=== PATIENT | female | born 1945 | race Caucasian/White ===

== ENCOUNTER 2020-09-20 10:27 | Emergency (ER) | payer OTHER ==
[~2020-09-20] VITALS: Ht 162.6 cm; Wt 77.1 kg
[~2020-09-20 10:27] MED LIST: ADVAIR 100-501 EACH INH; LISINOPRIL5 MG PO; LORTAB 7.5/5001 TA3 PO
[2020-09-20 11:49] LABS: URINE BILIRUBIN NEGATIVE (Negative); URINE BLOOD 1+ (Negative); URINE COLOR YELLOW; URINE GLUCOSE-RANDOM* NEGATIVE (Negative); URINE KETONES TRACE (Negative); URINE NITRITE-REFLEX NEGATIVE (Negative); URINE PROTEIN (DIPSTICK) 1+ (Negative); URINE UROBILINOGEN 0.2 E.U./dl (0.2-1.0)
[2020-09-20 11:50] LABS: URINE CLARITY SL HAZY; URINE LEUKOCYTES-REFLEX 1+ (Negative)
[2020-09-20 11:53] LABS: HEMATOCRIT 41.3 % (37.0-47.0); HEMOGLOBIN 13.5 gm/dL (12.0-15.0); MCH 29.2 pg (26.0-34.0); MCHC 32.8 g/dL (28.0-37.0); MCV 89.1 fL (80.0-100.0); RBC 4.63 mil/uL (4.20-5.00); RDW 13.2 % (10.5-14.5); WBC 4.3 thou/uL (4.0-11.0)
[2020-09-20 11:54] LABS: ANION GAP 15 mmol/L (7-16); BUN 26 mg/dL (7-18); CHLORIDE 104 mmol/L (98-107); CO2 20 mmol/L (21-32); CREATININE 1.4 mg/dL (0.6-1.0); GLUCOSE 137 mg/dL (74-106); POTASSIUM 3.7 mmol/L (3.5-5.1); SODIUM 139 mmol/L (136-145)
[2020-09-20 12:00] LABS: CASTS None Seen /LPF (None Seen); MUCUS 4-6 Moderate strn/LPF (None Seen); SQUAMOUS 0-3 Few /LPF (0-3); URINE WBC-REFLEX 6-15 Few /HPF (0-5)
[2020-09-20 12:01] LABS: BACTERIA-REFLEX >30 Many /HPF (None Seen); CRYSTALS None Seen /LPF (None Seen); URINE RBC 0-2 Rare /HPF (0-2)
[2020-09-20 12:03] LABS: SALICYLATE < 2.8 mg/dL (2.8-20.0); TROPONIN-I <0.06 ng/mL (<0.06)
[2020-09-20 18:00] VITALS: BP 112/84
--- NOTE | 2020-09-22 07:39 | EKG ---
[address] [place] [address] [facility] [place] [address] ELECTROCARDIOGRAM REPORT Name: RENATA SILVEIRA Room #: [facility]#: [id number] Admission: 09/20/20 Attend Phys: Discharge: 09/20/20 Date of : 47 Report #: [id number] [facility] ED Test Date: 2020-09-20 Test Time: 11:05:35 Pat Name: RENATA SILVEIRA Department: Room: Gender: F Bellows Tester: rick : 1945 Requested By: Frederick Yu Order Number: [id number] MD: Cody Wilkinson Measurements Intervals [place] Rate: 90 P: 65 DC: 179 QRS: -45 QRSD: 92 T: -10 QT: 383 QTc: 469 Interpretive Statements Sinus rhythm Abnormal R-wave progression, early transition Nonspecific ST and T wave abnormality Inferior infarct, old No previous ECG available for comparison Electronically Signed On 09-22-2020 7:39:07 GUEST RELATIONS REPRESENTATIVE by Cody Wilkinson [email or web address] <ELECTRONICALLY SIGNED> By: Cody Wilkinson MD, [facility] 09/22/20 0739 1105 1105 Cody Wilkinson MD, FACC /EPI
== END 2020-09-20 18:08 ==
LOC: ER 10:27
PROVIDERS: Emergency Medicine
DX: U07.1 COVID-19 (principal); F03.90 Unspecified dementia, unspecified severity, without behavioral disturbance, psychotic disturbance, mood disturbance, and anxiety; F31.9 Bipolar disorder, unspecified; N39.0 Urinary tract infection, site not specified; G93.40 Encephalopathy, unspecified; I10 Essential (primary) hypertension; E78.5 Hyperlipidemia, unspecified; R25.1 Tremor, unspecified; F41.9 Anxiety disorder, unspecified; Z90.49 Acquired absence of other specified parts of digestive tract; Z98.51 Tubal ligation status; Z79.899 Other long term (current) drug therapy; Z91.041 Radiographic dye allergy status; Z88.5 Allergy status to narcotic agent; Z93.6 Other artificial openings of urinary tract status; Z85.51 Personal history of malignant neoplasm of bladder

== ENCOUNTER 2020-09-20 18:35 | Inpatient (IN) | payer OTHER ==
[~2020-09-20] VITALS: Ht 162.6 cm; Wt 69.5 kg
--- NOTE | ~2020-09-20 | HC ---
[facility] [place] [address] CONSULTATION Name: RENATA SILVEIRA Room #: 355-P ADM IN M.R.#: [id number] Admission: 09/20/20 Attend Phys: Heber Sterling DO Discharge: Date of : 47 Report #: [id number] THIS REPORT FOR: cc: FAM - No family physician/PCP FAM - No family physician/PCP Nahum Orona MD ~ DATE OF SERVICE: 10/09/2020 HISTORY OF PRESENT ILLNESS: This is a 75-year-old female patient for which a neurological consultation is requested because of altered mental status. I reviewed the patient's records. I reviewed the nurse's note. I called Dr. Guzman and I talked to her and I called Dr. Edgardo Amezcua who is the hospitalist, who saw the patient today and discussed the patient with him. This patient provides no history. I made repeated effort to get any words out of her and I cannot get any words out of her and I cannot make her do any examination. So basically the consultation is from the records, but we will try to reach the family sometime. This patient has pretty significant psychiatric issues. She also developed COVID. It looks like this patient has some confusion even as early as 09/21/2020 and I reviewed the Psychiatry notes from that time. The notes indicate that she did have a urinary tract infection, but even now she has 6-15 wbc's in the urine. The history I get from the record as well as talking to the consultant rn is that this patient is not waking up, some examination has noticed some eye problems on her. Her medications are being cut back, but she is not much awake in fact the notes indicate that she is less awake today than she was yesterday. REVIEW OF SYSTEMS: Positive for pretty significant psychiatric problem. She also has tremor in the past. As far as back as 09/21/2020, I reviewed and looks like there was some conflict that she is reporting with the family member, but I am not sure whether that was a paranoid or whether that really happened. That is all the history I can gather, which is relevant. PAST MEDICAL HISTORY: Unavailable to me, except as mentioned above that she has a pretty significant psychiatric problem. FAMILY HISTORY: Unavailable. SOCIAL HISTORY: Again, she does not provide any social history and the records indicate that she does have a daughter and H and P indicates that she has no alcohol use. PHYSICAL EXAMINATION: Indicate that multiple attempts were made to examine her. She will not even open her eyes. She will not follow any commands. She does state her eyes closed and when I tried to open it, she tried to shut it down. Examination was impossible. I cannot tell anything. I did try to look for [facility] [address] [place] [address] CONSULTATION Name: RENATA SILVEIRA Room #: 355-P ADM IN M.R.#: [id number] Admission: 09/20/20 Attend Phys: Heber Sterling DO Discharge: Date of : 47 Report #: [id number] meningeal sign and she does not appear to have any. She has been mostly afebrile at least from 10/05/2020. Her pulse rate is running high at about 103, respirations about 16. She had an MRI of the brain with and without contrast and that was unremarkable. IMPRESSION: Pretty difficult to form in this patient. She is not responsive. I think she needs further workup. It may be COVID related encephalopathy, but other etiologies need to be excluded. Her LDH is trace high and platelet is stay low, but she has no schistocyte in the last CBC. She appears to have vitamin B12, has not been checked recently and I will suggest checking it. At one time, she has had some kidney issues, but they have resolved, but I will suggest giving her some thiamine. We can wait until tomorrow and if she does not wake up with lowering the medication, I agree that the next step is doing the spinal tap and if we do the spinal tap, we should do a cell count, protein, glucose, IgG index and oligoclonal band in this patient. I also agree with EEG to see if that look encephalopathy. I am not sure whether I should talk to the family or not because of the statement she has made, which has been recorded in H and P and I did not discuss that with Dr. Guzman today and I forgot, but we will talk to her tomorrow to see if that was her paranoia or whether that is a reality and whether we should even talk to the family. Thank you very much for this referral and Dr. Post will follow up this patient with you from tomorrow. By: 27 51 Nahum Orona MD /nt
[2020-09-20 18:45] VITALS: BP 116/77
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
[2020-09-21 07:50] VITALS: BP 100/56
--- NOTE | 2020-09-21 08:45 | NUR ---
ADMIT PT ADMITTED VIA ED FOR PSYCHOSIS NON SPECIFIC PT LIVES AT HOME WITH DAUGHTER AND PER DTR HAS HX OF BIPOLAR DISEASE. PT HAS HX OF BLADDER CANCER RESULTING IN AN UROSTOMY WITH RADIATION AND CHEMO. SELF CARES FOR UROSTOMY, BAG WAS FULL AT START OF SHIFT AND SHE EMPTIED IT HERSELF. ANSWERED ADMISSION QUESTIONS AND THEN SLEPT FOR THE REMAINDER OF THE SHIFT WAS COPPERATIVE WITH CARES.
[2020-09-21 12:15] VITALS: BP 102/62
--- NOTE | 2020-09-21 14:31 | NUR ---
1430 RESUMMED CARE FROM OVERNIGHT SHIFT THIS AM, PATIENT IN ROOM QUIET CALM. PATIENT ATE BREAKFAST TOOK MEDICATION WITHOUT INCIDENCE; PATIENT ALERT ORIENTED TO SELF AND MONTH COULD NOT TELL YOU ABOUT DATE AND PLACE. PATIENTS DENIES SI/HI/AH/VH AT [facility]. PATIENTS ABDOMEN SOFT ROUND BOWEL SOUNDS PRESENT LUNGS CLEAR. PATIENT PLEASANT CALM NO BEHAVIORS SOME FORGETFULNESS PATIENT HAS TREMORS IN BOTH HANDS THE RIGHT HAND IS WORST THEN LEFT. WILL CONTINUE TO MONITOR PATIENT FOR SAFETY AND BEHAVIORS.
[2020-09-21 16:30] VITALS: BP 94/57
[2020-09-21 19:53] VITALS: BP 89/48
[2020-09-22 04:03] VITALS: BP 121/96
--- NOTE | 2020-09-22 04:45 | NUR ---
PT LYING IN BED. UROSTOMY INTACT. DENIES PAIN. RESTING COMFORTABLY. NO NEEDS VOICED. FREQUENT OBSERVATION.
[2020-09-22 07:25] VITALS: BP 93/43
[2020-09-22 16:45] VITALS: BP 95/64
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
[2020-09-22 19:56] VITALS: BP 110/67
--- NOTE | 2020-09-22 22:00 | NUR ---
PATIENT SITTING SADLY AT EDGE OF BED, ASKED IF SHE NEEDED HELP GETTING TO THE BATHROOM, SHE REPLIED "IT'S TOO LATE" UROSTOMY BAG WAS NEARLY FULL AND, MORE TO THE POINT, LEAKING AT THE SIDE. PATIENT VERY UPSET ABOUT THIS AND WAS REASSURED THAT A REPLACMENT COULD BE FOUND.
--- NOTE | 2020-09-23 00:30 | NUR ---
UROSTOMY BAG REPLACED WITH HILARY 8640 WITH OVAL CUTOUT TO 1". DRAINING WELL AND AGREEMENT WAS MADE TO CHECK IT OFTEN. NEW MEDS STARTED AND EXPLAINED TO PATIENT: LAMICTAL AND MIRTAZIPINE, SHE WAS FAMILIAR WITH AT LEAST ONE OF THEM. MELATONIN GIVEN, PATIENT UNDERSTANDS THAT WE TYPICALLY LIKE TO GIVE SLEEPING PILLS BEFORE 10 PM, BUT MELATONIN IS NOT A BENZODIAZEPINE, AND SHE REALLY WANTS TO REST. CALMER NOW AND TURNING TO LEFT SIDE TO TRY SLEEPING
[2020-09-23 04:35] VITALS: BP 99/55
[2020-09-23 11:47] LABS: CALCIUM 9.3 mg/dL (8.5-10.1); POTASSIUM 4.2 mmol/L (3.5-5.1)
[2020-09-23 19:45] VITALS: BP 91/59
[2020-09-24 03:51] VITALS: BP 100/57
--- NOTE | 2020-09-24 03:52 | NUR ---
ASSESSMENT DOCUMENTED.PT BEEN SLEEPING MOST OF THE NOC.ON RA.A/OX2-3 W/O ACUTE DISTRESS.VSS.AFEBRILE.NO BEHAVIOR NOTED.ISOLATION MAINTAINED.NO C/O PAIN OR ANY DISTRESS NOTED AT THIS TIME.
[2020-09-24 05:39] LABS: HEMOGLOBIN 12.7 gm/dL (12.0-15.0); MCHC 32.6 g/dL (28.0-37.0); MCV 88.9 fL (80.0-100.0); RBC 4.39 mil/uL (4.20-5.00); RDW 13.1 % (10.5-14.5); WBC 5.1 thou/uL (4.0-11.0)
[2020-09-24 05:48] LABS: POTASSIUM 4.7 mmol/L (3.5-5.1)
[2020-09-24 08:10] VITALS: BP 107/54
--- NOTE | 2020-09-24 11:03 | NUR ---
PT CARE ASSUMED AT 0700. PT REFUSING TO GET UP AND ANNE IN HER BURST UROSTOMY BAG. HAS BEEN SLEEPING ALL NIGHT AND ALL MORNING. REFUSES TO LET ME ASSESS HER. SHE DID TAKE HER MORNING MEDICATION. IV PATENT WITH NO REDNESS OR EDEMA, FLUIDS INFUSING. BUN 55, CREATININE 2.0. PT HAS TREMORS IN THE HANDS AND SHAKES ON THE ENTIRE BODY AT TIMES TOO. WILL NOT KEEP EYECONTACT WHEN WHEN TOO. FALL PROTOCOL IN PLACE. CALL [facility] IN REACH. WILL CONTINUE TO MONITOR.
[2020-09-24 16:22] LABS: URINE BILIRUBIN NEGATIVE (Negative); URINE BLOOD 1+ (Negative); URINE CLARITY CLEAR; URINE COLOR YELLOW; URINE GLUCOSE-RANDOM* NEGATIVE (Negative); URINE KETONES NEGATIVE (Negative); URINE LEUKOCYTES-REFLEX NEGATIVE (Negative); URINE NITRITE-REFLEX NEGATIVE (Negative); URINE PROTEIN (DIPSTICK) NEGATIVE (Negative); URINE UROBILINOGEN 0.2 E.U./dl (0.2-1.0)
[2020-09-24 16:31] LABS: CASTS None Seen /LPF (None Seen); CRYSTALS None Seen /LPF (None Seen); SQUAMOUS 0-3 Few /LPF (0-3); URINE WBC-REFLEX 6-15 Few /HPF (0-5); YEAST-REFLEX Present (None Seen)
[2020-09-24 16:32] LABS: BACTERIA-REFLEX 1-9 Few /HPF (None Seen); URINE RBC 0-2 Rare /HPF (0-2)
[2020-09-24 17:40] VITALS: BP 125/60
[2020-09-24 19:48] VITALS: BP 102/61
--- NOTE | 2020-09-25 03:10 | NUR ---
PT ORIENTED TO SELF. NO ZBIGNIEW EVENTS VERNIGHT. PT SLEPT MOST OF THE NIGHT. DENIES PAIN. PT EARLIER AT THE SHIFT CHANGE KEPT MOANING STATING ," I WANT MY MOTHER, I WON'T RUN AWAY AGAIN.". PT REDIRECTED TO SLEEP , VITALS STABLE NO FEVER NOTED. UROSTOMY EMPTIED PERIODOCALLY . IV MAINTANANCE FLUIDS AT 100/HR. WILL CONTINUE TO MONITOR AND FOLLOW POC. ANTICIPATE TO DC TODAY.
[2020-09-25 04:24] VITALS: BP 106/59
[2020-09-25 09:33] VITALS: BP 94/51
--- NOTE | 2020-09-25 11:31 | NUR ---
SW reviewed pt's notes and saw that she is still experiencing some psych symptoms. Dr. Guzman explained in treatment team that she sees pt outpatient and pt is her own decision maker. Pt will be returning home. Dr. Guzman has been in contact with her family. SW team will continue to follow pt during her stay on this unit.
--- NOTE | 2020-09-25 14:41 | NUR ---
UNCLOTHED WITH LEGS SWUNG OVER SIDE OF BED ATTEMPTING TO CRAWL BETWEEN SIDE RAILS UPON INITAL APPROACH THIS AM AT 0730-YELLING OUT "Mamma-mammma"does quiet for short periods of time with staff sitting at bedside but will resume yelling almost immediatly upon staff member departure. inititally this am did feels warm totouch-temp checked and is 98.9 axillary-recheck at 1330 pt is afebrile with 97.9 oral temp. initial o2 sat thsi am low at 90 percent on ra-is noted to have dry cough periodically throughout am. dr. arriaga and dr singh notified of above
--- NOTE | 2020-09-25 18:56 | NUR ---
O2 SATS THIS AM LOW UPON INITIAL ASSESSMENT AT APPROX 0745-O2 2 LITERS PER NC APPLIED HOWEVER PT REMOVES FREQUENTLY-O2 RECHECKED AFTER SITTING UP IN CHAIR FOR LUNCH AND DOING SOME DEEP BREATHING WITH INSTRUCTIONS-RECHECKED ON RA AT 1300 AND SAT IS 95 PERCENT-INFREQUENT DRY NON-PRODUCTIVE COUGH THIS SHIFT. EATS WELL AT MEALTIMES BUT REQUIRES FEEDING BY STAFF D/T GROSS UPPER EXTREMITY TREMOR WHICH SEEMS TO GET WORSE WITH PURPOSEFUL ACTIVITY-TAKES PO FLUIDS WELL.UROSTOMY BAG EMPTIED WITH APPROX 700 CC URINE. HAS CONTNUED TO YELL OUT FROM TIME TO TIME FOR MOTHER AND FATHER-WILL ANSWER YES/NO QUESTIONS AND ABLE TO COMMUNICATE NEEDS. RESTLESS AT APPROX 1530 REMOVED CLOTHING AND LYING AT FOOT OF BED IN POSITION CRYING FOR MOTHER .
[2020-09-25 20:14] VITALS: BP 138/81
[2020-09-26 07:58] VITALS: BP 122/73
[2020-09-26 10:40] LABS: CALCIUM 8.1 mg/dL (8.5-10.1); POTASSIUM 3.8 mmol/L (3.5-5.1)
--- NOTE | 2020-09-26 12:02 | NUR ---
1200 RESUMMED CARE FROM OVERNIGHT SHIFT THIS AM, PATIENT IN ROOM QUIET. PATIENT'S BED THIS AM WAS SOAKED WITH URINE WE CHANGED PATIENTS LINEN AND CLEANED PATIENT. PATIENT ATE VERY LITTLE BEAKFAST AND STATED HE FOOD IS NASTY, I CRUSHED HER MEDS AND GAVE IN APPLESAUCE. PATIENT ABDOMEN SOFT ROUND BOWEL SOUNDS PRESENT; LUNGS CLEAR. PATIENT UNABLE TO TELL ME ABOUT SI/HI/AH/VH AT PRESENT. PATIENTS DAUGHTER CALLED AND WANTS DR SHEPHERD TO CALL HER [phone]. PATIENT SLEEPS ON AND OFF AND HAS NOT DISPLAYED AN BEHAVIORS WILL CONTINUE TO MONITOR PATIENT FOR SAFETY AND BEHAVIORS.
[2020-09-26 20:03] VITALS: BP 143/75
--- NOTE | 2020-09-27 05:10 | NUR ---
Assumed care of patient this pm shift. Patient calm and cooperative. Denies pain. Denies hi/si. Takes medications crushed with yogurt. Affect is blunted. Assessment shows no signs of acute distress. Swallowing precautions in place, nectar thick liquids. Patient slept through the night without issue. We will continue to monitor per hospital policy.
--- NOTE | 2020-09-27 05:17 | NUR ---
Assumed care of patient this pm shift. Patient calm and cooperative and speaks very little. Yes no questions. Patient is very lethargic. IV in right forearm infiltrated. A new IV will be attempted by RN. Patient has a urinary ostomy bag in place. Falls precautions in place. Patient does not appear to have hi/si. Assessment shows no signs of acute distress. We will continue to monitor per hospital policy.
[2020-09-27 07:41] VITALS: BP 139/87
[2020-09-27 09:58] VITALS: BP 139/87
--- NOTE | 2020-09-27 16:02 | NUR ---
1600 RESUMMED CARE FROM OVERNIGHT SHIFT THIS AM, PATIENT IN RECLINER SLEEPING. PATIENT ALERT ORIENTED TO SELF NON VERBAL WHEN YOU ASK QUESTIONS NODS NO OR YES. PATIENTS ABDOMEN SOFT ROUND BOWEL SOUNDS PRESENT, LUNGS LOWER CRACKLES PTIENT IS ON [address] HALL CAME AND ROUNDED ON PATIENT SHE ASK ME TO CALL DR GRANADOS AND ASK HIM WHAT WE SHOULD DO FOR THE PATIENT. DR GRANADOS CALLED ME AND PATIENT'S IV STARTED BY IV NURSE AND MEDICATION GIVEN TO PATIENT. DR GRANADOS WILL ROUND ON PATIENT LATER IN DAY. PATIENT CALM COOPRATIVE WILL CONTINUE TO MONITOR PATIENT FOR SAFETY AND BEHAVIORS.
[2020-09-27 20:20] VITALS: BP 148/99
[2020-09-28 04:30] LABS: ABSOLUTE NEUTROPHILS 4.4 thou/uL (1.4-8.2); BASOPHILS 0.3 % (0.0-2.0); EOSINOPHILS 0.7 % (0.0-3.0); HEMOGLOBIN 11.9 gm/dL (12.0-15.0); LYMPHOCYTES 15.5 % (24.0-44.0); MCH 29.3 pg (26.0-34.0); MCHC 33.1 g/dL (28.0-37.0); MCV 88.6 fL (80.0-100.0); MONOCYTES 10.6 % (1.0-8.0); PLATELET COUNT 202 thou/uL (150-400); POLYS 72.9 % (36.0-66.0); RBC 4.06 mil/uL (4.20-5.00); RDW 13.4 % (10.5-14.5)
[2020-09-28 04:33] LABS: ALBUMIN 2.5 g/dL (3.4-5.0); CALCIUM 8.3 mg/dL (8.5-10.1); POTASSIUM 3.2 mmol/L (3.5-5.1); TOTAL BILIRUBIN 1.1 mg/dL (0.2-1.0); TOTAL PROTEIN 6.9 g/dL (6.4-8.2)
--- NOTE | 2020-09-28 04:47 | NUR ---
ASSUMED PT'S CARE BEGINNING OF THIS PM SHIFT. PT ALERT. PT ON 2L NC. APPARENTLY WAS ON 6L PER REPORT BEGINNING OF SHIFT. UNABLE TO ANSWER ANY ORIENTATION QUESTIONS. PT ABLE TO NOD OR SHAKE HEAD IN RESPONSE TO QUESTIONS. PT NON COMPLIANT WITH MEDS THIS SHIFT. VOICED "NO". CLOSED HER MOUTH AND TIGHTENED HER LIPS AND TEETH. SEVERAL ENCOURAGEMENTS FOR PT TO TAKE MEDS WERE NOT PRODUCTIVE. NEW MEDS ORDERED PER DR GRANADOS. MEDS GIVEN PER EMAR. URINE SAMPLE OBTAINED FOR LAB. MRSA SWAB DONE. PT SLEPT WELL THIS SHIFT, SATTING UP TO 94% ON 2L. LUNGS CLEAR THIS SHIFT. FALL PRECAUTION IN PLACE. WILL CONTINUE TO MONITOR.
[2020-09-28 05:37] LABS: INR 1.2; PROTIME 11.9 Seconds (9.3-11.4)
[2020-09-28 08:00] VITALS: BP 159/52
[2020-09-28 10:39] LABS: ALBUMIN 2.7 g/dL (3.4-5.0); CREATININE 0.9 mg/dL (0.6-1.0); DIRECT BILIRUBIN 0.2 mg/dL (<0.1-0.2)
--- NOTE | 2020-09-28 13:02 | NUR ---
0850 ASSUMED CARE OF PATIENT, PATIENT SLEEPING IN CHAIR AT THAT TIME. PATIENT REFUSES TO EAT BREAKFAST AND ONLY TAKES 2/3 OF MEDICATION CRUSHED IN YOGURT THIS AM. PATIENT TIGHTENS UP MOUTH AND REUSES TO TAKE. HEP LOCK TO LEFT HAND INTACT NO REDNESS NOTED. PATIENT UNABLE TO ANSWER QUESTIONS AT THAT TIME. PATIENT NOTED WITH TREAMORS THAT INCREASE WHEN TALKING WITH PATIENT. UROSTOMY BAG INTACT. LUNG SOUNDS DEMINISHED, BS ACTIVE. WILL CONTINUE TO OBSERVE
--- NOTE | 2020-09-28 13:50 | NUR ---
SW completed psychosocial assessment and tx plan.
--- NOTE | 2020-09-28 14:37 | NUR ---
1410 DR BORDEN IN ROOM TO SEE PATIENT, PATIENT NOT WANTING TO RESPOND TO QUESTIONS ASK BY DR AT FIRST THEN PATIENT YELLS OUT SIMPLE RESPONSES. NOTED PATIENT MOUTH AND TONGUE VERY DRY AND THICK COATING ON TONGUE. TOOTHLETTS USED TO CLEAN OUT MOUTH AND TONGUE. PATIENT AWAKE AND COOPERATIVE WHILE HYDROLOGICAL TECHNICAL OFFICER CLEANS MOUTH. ATTEMPTED TO GIVE FLUIDS AT THAT TIME PATIENT STARES AT ME AND WILL NOT OPEN MOUTH TO DRINK.
--- NOTE | 2020-09-28 15:39 | NUR ---
SATYA spoke to granddaughter who stated her mother had the list of places they would like referrals sent to; her mother is currently in anabaptism service. Granddtr stated she would call SATYA after she spoke to her mother.
--- NOTE | 2020-09-28 16:23 | NUR ---
O2 SATS OBTAINED BY RT WHEN IN GIVING BREATHING TX. RT REPORTED O2 SATS 92-93 % ON 2 L N/C AND 87% ON RA WITH MORNING TX. AFTERNOON TX O2 SATS 94% ON 2L N/C.
--- NOTE | 2020-09-28 16:27 | HC ---
[facility] [place] [address] CONSULTATION Name: RENATA SILVEIRA Room #: 224-P ADM IN M.R.#: [id number] Admission: 09/20/20 Attend Phys: Heber Sterling DO Discharge: Date of : 47 Report #: [id number] THIS REPORT FOR: cc: FAM - No family physician/PCP FAM - No family physician/PCP Paul Lira MD ~ DATE OF SERVICE: 09/27/2020 INFECTIOUS DISEASE CONSULTATION REASON FOR CONSULTATION: I was asked to evaluate concerning COVID-19 infection and respiratory compromise. HISTORY OF PRESENT ILLNESS: The patient is a 75-year-old with underlying history of bipolar disorder, who presented to the Emergency Room on 09/20 with altered mental status. She had been manic in the days leading up to this; then, the daughter had noticed a significant change in her mental status. She had been quite agitated over the days prior to this. She does have a urostomy as she underwent a cystectomy for bladder cancer previously. There was concern for underlying urinary tract infection. Following her admission, she was screened positive for COVID-19. She had had no cough or sputum production. There has been no fever, chills and sweats. She was admitted, placed on ciprofloxacin. Cultures so far were negative. Also treated for her mental status change by Psychiatry. Over the last several days, she has had progressive shortness of breath and anasarca. She has been on IV fluids. She has had poor oral intake. There has been no nausea, vomiting or diarrhea. The patient has been much less communicative over the last 24 hours. Oxygen requirement is up to 3 liters per nasal cannula. Again, no fever identified over the last 24 hours. Appetite has been poor. She lost her IV this morning and that has been replaced. REVIEW OF SYSTEMS: Fourteen-point review of system was negative other than what has been described above. ALLERGIES: IODINE, MORPHINE AND CODEINE. MEDICATIONS: As noted on her MAR, including Levaquin. PAST MEDICAL HISTORY: Bipolar disorder, bladder cancer with cystectomy and ileal conduit, anxiety disorder, hyperlipidemia, hypertension and essential tremor. FAMILY HISTORY: No report of tuberculosis. SOCIAL HISTORY: Nonsmoker, no significant alcohol intake. [facility] [address] [place] [address] CONSULTATION Name: RENATA SILVEIRA Room #: 224-P [facility] IN .R.#: [id number] Admission: 09/20/20 Attend Phys: Heber Sterling DO Discharge: Date of : 47 Report #: [id number] PHYSICAL EXAMINATION: VITAL SIGNS: Afebrile and hemodynamically stable. GENERAL: The patient was sitting up in her chair. She was not able to cooperate with her evaluation; she would resist evaluation. She had 2+ anasarca. EYES: Without scleral icterus. MOUTH: Without mucositis. LUNGS: Coarse posteriorly. HEART: Regular, without murmur. ABDOMEN: Mildly distended, did not appear tender. Her urostomy was functional. EXTREMITIES: Right greater than left upper extremity edema. Peripheral IV in place. Able to move all extremities. Depressed mental status. LABORATORY STUDIES: Reviewed. MICROBIOLOGY: Reviewed. IMPRESSION: A 75-year-old with COVID-19 identified on 09/20/2020, now with hypoxia and further respiratory decline. She has bipolar disorder and altered mental status. She has bladder cancer, status post cystectomy and ileal conduit. Anasarca. RECOMMENDATIONS: We will begin combination of antiviral therapy and antibiotic therapy. Obtain laboratory studies, chest x-ray, cultures. Diuresis and hold normal saline drip. Follow laboratory studies and chest x-ray. I have discussed with attending and nursing staff at the bedside. <ELECTRONICALLY SIGNED> By: Paul Lira MD 09/28/20 1627 [id number] Paul Lira MD /nt
--- NOTE | 2020-09-28 17:57 | NUR ---
PATIENT IN ROBERTO CHAIR MOANING, PATIENT C/O LEFT HAND HURTING WHERE POTASIUM IV IS INFUSING. IV RATE DECREASED TO 30ML/HR. PATIENT SHAKING AND ASKED IF ANXIETY MED WOULD HELP PATIENT STATES YES PLEASE. ATIVAN GIVEN AT 1745 0.5 MG PO WITH YOGURT. PATIENT ATE 1 PUDDING FOR DINNER AND A YOGURT WITH PO MED. AFTER ASSISTING PATIENT WITH YOGURT PATIENT STATES "THANK YOU" TO PIPE STEM REPAIRER. NO URINE NOTED TO UROSTOMY WITH NO OUT PUT THIS SHIFT. PATIENT COMFORTABLE RESTING.
[2020-09-28 20:05] VITALS: BP 135/83
[2020-09-29 03:56] LABS: ALBUMIN 2.6 g/dL (3.4-5.0); CREATININE 1.1 mg/dL (0.6-1.0); DIRECT BILIRUBIN 0.2 mg/dL (<0.1-0.2); TOTAL BILIRUBIN 0.8 mg/dL (0.2-1.0); TOTAL PROTEIN 7.1 g/dL (6.4-8.2)
--- NOTE | 2020-09-29 04:05 | NUR ---
Assumed care of patient this pm shift. Patient calm and cooperative sitting in chair during assessment. Patient is on several IV medications. Patient is alert and oriented to self. Patient takes medications crushed in pudding or yogurt. Patient does not bear weight for extended periods, falls precautions in place. Urostomy emptied this shift. Does not show any signs of hi/si. Covid positive . Patient moved from flor chair to bed and has tolerated it well. No attempts to leave the bed unsupervised. We will continue to monitor per hospital policy.
[2020-09-29 07:55] VITALS: BP 115/64
--- NOTE | 2020-09-29 11:08 | NUR ---
0700 ASSUMED CARE OF PATIENT, PATIENT LYING IN BED WITH EYES CLOSED. PATIENT CALM AND COOPERATIVE. ORAL CARE GIVE THIS AM. PATIENT TRANSPORTED TO [place] VIA BY STAFF. RETURNED TO ROOM AND TRANSFERED BACK TO BED. PATIENT ATE FEW BITES OF BREAKFAST. MEDICATIONS GIVEN CRUSHED IN YOGURT PATIENT FINISHED YOGURT COMPLETLY. HEP LOCK TO LEFT HAND IN TACT WITH NO REDNESS NOTED TO SITE. PATIENT UROSTOMY WAS LEAKING, NO URINE OBSERVED BAG WAS WET AND TAPED TO SKIN. BAG CHANGED AFTER CLEANING AREA WELL. STOMA IS REDISH AND MOIST. PATIENT GIVEN ATIVAN AFTER NUTRITION WORKER ASKED PATIENT IF SHE WAS ANXIOUS. PATIENT NOTED WITH TREMORS BUT PATIENT UNABLE TO RELAX. PATIENT APPEARS TO BE HURTING BUT PATIENT DENIES PAIN. 1000 0.5 MG ATIVAN GIVEN PO. WILL CONTINUE TO OBSERVE
--- NOTE | 2020-09-29 11:27 | NUR ---
PATIENT RESTLESS AND ATTEMPTING TO GET OUT OF BED. PATIENT DISROBED IN THIS PROCESS. PATIENT REDRESSED AND REPOSITIONED IN BED. WHEN PATIENT ASKED QUESTIONS PATIENT STARES AND DOES NOT RESPOND. WILL CONTINUE TO OBSERVE
--- NOTE | 2020-09-29 11:46 | NUR ---
PATIENT HAND SWOLLEN AT IV SITE. IV DC'D AT THIS TIME. WILL CALL IV TEAM TO RESTART.
[2020-09-29 19:56] VITALS: BP 145/92
[2020-09-30 05:01] LABS: HEMOGLOBIN 12.3 gm/dL (12.0-15.0); MCH 28.7 pg (26.0-34.0); MCHC 32.3 g/dL (28.0-37.0); MCV 88.8 fL (80.0-100.0); RBC 4.28 mil/uL (4.20-5.00); RDW 13.5 % (10.5-14.5); WBC 8.1 thou/uL (4.0-11.0)
[2020-09-30 05:30] LABS: CALCIUM 9.3 mg/dL (8.5-10.1); CREATININE 1.1 mg/dL (0.6-1.0); POTASSIUM 3.3 mmol/L (3.5-5.1)
[2020-09-30 05:34] LABS: ALBUMIN 2.9 g/dL (3.4-5.0); DIRECT BILIRUBIN 0.1 mg/dL (<0.1-0.2); TOTAL BILIRUBIN 0.7 mg/dL (0.2-1.0); TOTAL PROTEIN 7.5 g/dL (6.4-8.2)
--- NOTE | 2020-09-30 08:52 | NUR ---
OSTOMY CARE; UROSTOMY POUCH LOOSE, PT CONFUSED BUT COOPERATIVE, NEW POUCH HILARY PRECUT CONVEX 1 10/10' APPLIED, STOMA RED VIABLE BUDDED, URINE CLEAR YELLOW, CONNECTED TO DEP DRAINAGE SYSTEM, SUPPLIES PLACED AT BS, WILL CONT TO FOLLOW RECOMMENDATIONS; CONVEX HILARY POUCH, CHANGE Q3-5 DAYS AND PRN, CONNECT TO DEP DRAINAGE MANAGER GLOBAL COMMUNICATIONS AWARE
[2020-09-30 09:12] VITALS: BP 156/93
--- NOTE | 2020-09-30 19:44 | NUR ---
Slept most of day in chair. Placed in bed early in day but she was restless, took off gown and turned prone twisting cathetar around legs and torso. Nonverbal all day but did have eyes open at times. No behavior suggestive of SI/HI. Took meds crushed in apple sauce, but was very resistant to eating or drinking anything else PO. Did take 2 oz of orange juice with alot of encouragement. Breath sounds clear. Reg HR auscultated. Color pink with brisk capillary refill and palpable peripheral pulses. +1 edema in lower extremities. IV per R hand soft and flat, flushes easily. D5W hung and infusing at 75 cc/hr per order. Gave KCL 20meq IV X2 per order, infused over 2 hours each. Urostomy pink and protruding, changed by ostomy nurse, drained 950 cc clear yellow urine over shift. Active bowel sounds over soft, rounded abdomen. Currently in bed without s/o distress.
[2020-09-30 20:02] VITALS: BP 148/77
--- NOTE | 2020-10-01 05:09 | NUR ---
ASSUMED PT'S CARE BEGINNING OF THIS PM SHIFT. PT WAS IN HER ROOM LAYIGN IN BED, LETHARGIC AT TIME OF ASSESSMENT. PT WAS ABLE TO WAKE UP TO TAKE MEDS CRUSHED IN APPLESAUCE. TOOK ONLY THE ONE BITE WITH MEDS IN IT. DECLINED REST OFFERS. IV TO RH WITH IV ABX INFUSING WHEN DUE, OTHERWISE D5 GOING @ 75ML/HR. PT REPOSITIONED SHE LEANED TOWARDS ONE SIDE OF THE BED. FALL PRECAUTION IN PLACE. CALL LIGHT WITHIN REACH. HOURLY ROUNDINGS MADE. WILL CONTINUE TO MONITOR.
[2020-10-01 06:31] LABS: HEMATOCRIT 39.1 % (37.0-47.0); HEMOGLOBIN 12.6 gm/dL (12.0-15.0); MCH 28.6 pg (26.0-34.0); MCHC 32.1 g/dL (28.0-37.0); MCV 88.9 fL (80.0-100.0); RBC 4.4 mil/uL (4.20-5.00); RDW 13.4 % (10.5-14.5); WBC 8.3 thou/uL (4.0-11.0)
[2020-10-01 06:44] LABS: CALCIUM 8.8 mg/dL (8.5-10.1); POTASSIUM 3.7 mmol/L (3.5-5.1)
[2020-10-01 06:50] LABS: ALBUMIN 2.9 g/dL (3.4-5.0); DIRECT BILIRUBIN 0.2 mg/dL (<0.1-0.2); TOTAL BILIRUBIN 0.7 mg/dL (0.2-1.0); TOTAL PROTEIN 6.7 g/dL (6.4-8.2)
--- NOTE | 2020-10-01 10:41 | NUR ---
0700 ASSUMED CARE OF PATIENT, PATIENT LYING IN BED IN GOWN. PATIENT LETHARGIC AND BINDING CEMENTER FRENCH CORD UNABLE TO GIVE MEDICATION. PATIENT VS BP-156/93 P-109 R-20 T-98.2 O2 SATS- 91%. UROSTOMY INTACT WITH CLEAR YELLOW URINE NOTED TO BAG. PATIENT REPOSITIONED IN BED TO RIGHT SIDE. RT IN ROOM BREATHING TX GIVEN PATIENT REMAINED ASLEEP. BINDING CEMENTER FRENCH CORD IN ROOM, IV MEDICATION HUNG AND PATIENT NOTED SLEEPING. PATIENT DOES NOT WAKE UP WITH CARE. NO RESP DISTRESS NOTED. PATIENT DOES NOT EAT BREAKFAST. WILL CONTINUE TO OBSERVE
[2020-10-01 10:42] VITALS: BP 141/88
--- NOTE | 2020-10-01 13:52 | NUR ---
[id number] PATIENT AWAKE AND ATTEMPTING TO GET OUT OF BED. RN AND SVP RESEARCH AND STRATEGIC ANALYSIS IN ROOM IV NOTED OUT AT THAT TIME. PATIENT TO ROBERTO CHAIR AND LAP BUDD IN PLACE WITH OPENING TO FRONT. PATIENT AWAKE, STARES AT COMMERCIAL FINANCE ANALYST AND DOES NOT ANSWER QUESTIONS. WILL CONTINUE TO OBSERVE
--- NOTE | 2020-10-01 19:14 | NUR ---
1730 IV RESTARTED TO LEFT MIDLINE. 175 PIPERACILLIN RESTARTED AT THIS TIME TO LEFT MIDLINE. PATIENT IN CHAIR WITH EYES CLOSED. REPOSITIONED, PATIENT LETHARGIC AT THAT TIME.
[2020-10-01 20:28] VITALS: BP 170/108
[2020-10-01 21:30] VITALS: BP 154/99
[2020-10-02 04:50] VITALS: BP 140/70
--- NOTE | 2020-10-02 05:48 | NUR ---
ASSUMED PT'S CARE THIS PM SHIFT. PT WAS AWAKE AT TIME OF ASSESSMENT. DID NOT VOICE ANY WORDS TO NURSING. PT TOOK MEDS CRUSHED IN YOGHURT. PT TOOK REST OF CUP OF YOGHURT. PT HAD HALF OF ENSURE BOTTLE. PT DRANK A CUP OF WATER. PT SLEPT WELL THIS SHIFT ON HER RECLINER. DR GRANADOS VISITED PT THIS SHIFT. PT LETHARGIC THIS AM. DID WAKE UP TO TAKE HER PROTONIX IN YOGHURT. BP WAS HIGH BEGINNING OF SHIFT. PT WAS HAVING TREMORS AND WAS NOT STEADY AT THAT TIME. BP DID TREND DOWN TO 140/70 THIS AM. ILLEAL CONDUIT IN PLACE AND INTACT FOR VOIDING. WILL CONTINUE TO MONITOR.
[2020-10-02 06:11] LABS: HEMATOCRIT 39.5 % (37.0-47.0); HEMOGLOBIN 12.8 gm/dL (12.0-15.0); MCHC 32.4 g/dL (28.0-37.0); MCV 89.6 fL (80.0-100.0); RBC 4.41 mil/uL (4.20-5.00); RDW 13.9 % (10.5-14.5); WBC 8.6 thou/uL (4.0-11.0)
[2020-10-02 06:20] LABS: CALCIUM 9.5 mg/dL (8.5-10.1); CREATININE 1.4 mg/dL (0.6-1.0); POTASSIUM 3.3 mmol/L (3.5-5.1)
[2020-10-02 06:30] LABS: DIRECT BILIRUBIN 0.1 mg/dL (<0.1-0.2); TOTAL BILIRUBIN 0.6 mg/dL (0.2-1.0); TOTAL PROTEIN 7.4 g/dL (6.4-8.2)
[2020-10-02 08:32] VITALS: BP 152/92
[2020-10-02 20:00] VITALS: BP 130/72
[2020-10-02 20:01] VITALS: BP 130/72
[2020-10-03 03:56] LABS: HEMATOCRIT 38.4 % (37.0-47.0); HEMOGLOBIN 12.1 gm/dL (12.0-15.0); MCH 28.5 pg (26.0-34.0); MCHC 31.5 g/dL (28.0-37.0); MCV 90.3 fL (80.0-100.0); RBC 4.25 mil/uL (4.20-5.00); RDW 13.8 % (10.5-14.5); WBC 7.8 thou/uL (4.0-11.0)
[2020-10-03 04:01] LABS: CALCIUM 8.8 mg/dL (8.5-10.1); CREATININE 1.5 mg/dL (0.6-1.0); POTASSIUM 3.3 mmol/L (3.5-5.1)
--- NOTE | 2020-10-03 04:25 | NUR ---
PATIENT HAS CONTINUED TO SLEEP SOUNDLY WITH MILD SNORING. IV ANTIBIOTICS RUNNING AT THIS TIME. PATIENT APPEARS TO BE COMFORTABLE. MOUTH AND TEETH SWABBED TO RID TEETH OF BUILD UP. LABS DRAWN. CONTINUING TO MONITOR. DOES NOT APPEAR TO BE IN DISTRESS. RESTING COMFORTABLY.
--- NOTE | 2020-10-03 06:31 | NUR ---
NOTICED WHEN PATIENT NOT SLEEPING SOUNDLY THAT SHE TREMORS MORE THRU UPPER BODY. CHECKED HER AXILLARY TEMP TO SEE IF SHAKING FROM CHILLING. TEMP WAS 97.8. PATIENT ABLE TO REPOSITION SELF IN RECLINER AND CONTINUES TO SLEEP. SHE STILL IS NOT OPENING EYES BUT DOES GET RESISTIVE TO CARES. PATIENT AROUSING MORE TO WHEN NAME IS CALLED AND SEEMS MORE AWARE WHEN SOMEONE IS IN THE ROOM. PATIENT STILL CLINCHING HER JAW AND UNABLE TO GIVE HER PO MEDS. PATIENT RESTING AT THIS TIME. MIDLINE LEFT ARM IN PLACE AND PATENT. DEXTROSE RUNNING AT THIS TIME. CONTINUING TO MONITOR. PT SLEPT 10.8 HOURS LAST NIGHT.
[2020-10-03 07:48] VITALS: BP 146/88
[2020-10-03 10:17] VITALS: BP 146/88
--- NOTE | 2020-10-03 15:54 | NUR ---
NOTED TO HAVE A PORT TO UPPER RIGHT CHEST-ACCESSED BY IV TEAM NURSE-DEXTROSE AT 75 CC AN HOUR RUNNING IN LEFT UPPER ARM MIDLINE WITH PLAN TO ADMINISTER ABX,KCL ETC VIA PORT CONTINUES TO CLENCH TEETH TIGHTLY AND WILL NOT OPEN WITH ATTEMPTS TO GIVE PO MEDS,FOOD OR FLUIDS. ATIVAN 0.5MG GIVEN IM IN RIGHT DELTOID AT APPROX 0845 IN HOPES WOULD BE RECEPTIVE TO BREAKFAST AND SOME PO FLUIDS,ENSURE ETC-WAS SLIGHTLY LESS RESISITVE AND WITH SPOONING LIQUIDS INTO MOUTH TOOK APPROX 120 CC BEFORE BEGAN COUGHING-AT APPROX 1230 ATTEMPTED TO GIVE APPLESAUCE AND YOGURT AND AGAIN BEGAN TO COUGH AFTER SWALLOWING-ID MD ON UNIT AT TIME AND INFORMED OF POSSIBLE ASPIRATION. HAS NOT BEEN NOTED TO COUGH AT ANY OTHER TIME IS SHIFT SO FAR. LUNG SOUNDS DIMINSIHED-O2 SATS 92-94 PERCENT ON 02 2LITERS. GROSS UPPER BODY TREMOR. SOME POSTURING-TYPE BEHAVIOR WILL HOLD ARM UP IN AIR FOR 2-3 MINUTES FOR NO APPARENT REASON. DOES NOT RESPOND TO REPEATED QUES TO OPEN EYES OR FOLLOW VERBAL COMMANDS BUT WILL OFFER ACTIVE REISTANCE AT ATTEMPTS TO REPOSITION WILL REPEATDLY ROLL ONTO LEFT ARM WHERE IV IS LOCATED OR GRABB AT UPPER LEFT ARM. SKIN W/D INTACT. AFEBRILE
[2020-10-03 20:24] VITALS: BP 138/96
--- NOTE | 2020-10-04 01:47 | NUR ---
ASSESSED AT START OF SHIFT. PT ASLEEP IN CHAIR, WITH EYES CLOSED BUT ABLE TO MOVE EXTREMITIES. TREMORS NOTED. REFUSED NIGHT TIME MEDS. PT CLENCHES JAW. ON 2L OF OXYGEN. UROSTOMY BAG INTACT. PORTHA CATH INTACT WITH FLUIDS INFUSING. FALL PREC IN PLACE AND WILL CONT TO MONITOR.
[2020-10-04 05:41] VITALS: BP 133/93
--- NOTE | 2020-10-04 07:24 | NUR ---
[place] [address]/03/20 TRANSFERRED TO RM 355 PER MD ORDER-PT TRANSPORTED BY [facility] AT APPROX 1830 TO RM 355-REPORT GIVEN TO MIKE ASHLEY-IV'S INFUSING AT TIME OF TRANSFER-O2 2 LITERS-PT SITTING QUIETLY IN CHAIR WITH EYES CLOSED IN NO ACUTE DISTRESS. UROSTOMY BAG TO DD LEG BAG DRAINING LIGHT YELLOW URINE. FACE SHEET AND SW NOTES REVIWED IN ATTEMPT TO OBTAIN FAMILY CONTACT TO INFORM OF TRANSFER BUT NO EMERGENCY CONTACTS FOUND-PT UNABLE TO PROVIDE INFO. MESSAGE LEFT ON PT HOME PHONE IS BELIEVED DAUGHTER MUSTAPHA LIVES WITH PT AND IS PRIMARY SUPPORT/CONTACT.
[2020-10-04 07:28] VITALS: BP 158/113
--- NOTE | 2020-10-04 09:47 | NUR ---
CORRECTION: NOTE ENTERED BY THIS SW ON 09/28/20 RE: CONVERSATION WITH PT'S GRANDDAUGHTER WAS ENTERED IN WRONG PATIENT'S CHART. PLEASE DISREGARD. SW WAS UNABLE TO UNDO THAT NOTE.
--- NOTE | 2020-10-04 10:06 | NUR ---
SATYA spoke to patient's daughter Rebecca [phone] to inform her that patient has been moved from the SICU to 3 for logistics reasons vs. status change in patient. There has been no change in patient's status. Rebecca thanked SATYA for calling. SATYA team will continue to follow.
[2020-10-04 10:24] LABS: ABSOLUTE NEUTROPHILS 8.3 thou/uL (1.4-8.2); BASOPHILS 0.2 % (0.0-2.0); EOSINOPHILS 0.4 % (0.0-3.0); HEMATOCRIT 39.7 % (37.0-47.0); HEMOGLOBIN 12.7 gm/dL (12.0-15.0); MCH 28.6 pg (26.0-34.0); MCHC 31.9 g/dL (28.0-37.0); MCV 89.6 fL (80.0-100.0); MONOCYTES 4.3 % (1.0-8.0); PLATELET COUNT 247 thou/uL (150-400); POLYS 87.1 % (36.0-66.0); RBC 4.43 mil/uL (4.20-5.00); RDW 13.7 % (10.5-14.5); WBC 9.6 thou/uL (4.0-11.0)
[2020-10-04 10:43] LABS: CALCIUM 8.7 mg/dL (8.5-10.1); CREATININE 1.3 mg/dL (0.6-1.0); POTASSIUM 3.7 mmol/L (3.5-5.1)
[2020-10-04 19:01] VITALS: BP 151/105
--- NOTE | 2020-10-05 03:42 | NUR ---
contines on 3 liters n/c. keeping o2 sats mid 90's. lethargic, responds to sternal rub with grimaced face and pulling hands to chest, minimal vocalization. she is in bed turning self and respostioning as needed for herself. completely withdrawn, does not try to communicate. she continues to be npo tonight. she is recieving iv fluids, and antibiotics.
[2020-10-05 03:46] VITALS: BP 105/68
[2020-10-05 08:18] VITALS: BP 92/56
[2020-10-05 15:57] VITALS: BP 135/90
[2020-10-05 19:18] VITALS: BP 137/87
[2020-10-06 03:09] VITALS: BP 142/84
[2020-10-06 07:14] VITALS: BP 121/70
--- NOTE | 2020-10-06 09:51 | NUR ---
OSTOMY CARE; POUCH ON X 5 DAYS, CHANGED USING ONE PIECE CONVEX HILARY APPLIANCE 1', CONNECTED TO DEP DRAINAGE, STOMA RED, VIABLE FLAT W/ SKIN SURFACE, YELLOW CLEAR URINE NOTED, SLEEPING, COOPERATIVE, SUPPLIES AT BS RECOMMENDATIONS; CHANGE POUCH Q3-5 DAYS AND PRN, KEEP CONNECTED TO DEP DRAINAGE DEVELOPMENT WRITER AWARE
[2020-10-06 15:38] LABS: BASOPHILS 0.1 % (0.0-2.0); EOSINOPHILS 0.1 % (0.0-3.0); HEMATOCRIT 39.5 % (37.0-47.0); HEMOGLOBIN 12.6 gm/dL (12.0-15.0); LYMPHOCYTES 7.5 % (24.0-44.0); MCH 28.4 pg (26.0-34.0); MCV 88.9 fL (80.0-100.0); PLATELET COUNT 186 thou/uL (150-400); POLYS 90.3 % (36.0-66.0); RBC 4.44 mil/uL (4.20-5.00); RDW 13.6 % (10.5-14.5); WBC 6.6 thou/uL (4.0-11.0)
[2020-10-06 15:48] LABS: CALCIUM 8.7 mg/dL (8.5-10.1); CREATININE 1.1 mg/dL (0.6-1.0); POTASSIUM 3.6 mmol/L (3.5-5.1)
[2020-10-06 19:33] VITALS: BP 145/90
[2020-10-07 02:37] VITALS: BP 144/98
--- NOTE | 2020-10-07 05:06 | NUR ---
Pt. has been awake most of the night. Very impulsive and keeps trying to get out of bed. Repositioned frequently but at times she sits up on her own. Haldol given with some help , she calm down but remained awake. Later on prn ativan given. Cont. on enhanced precaution , afebrile. Maintaining O2 sat in the mid to upper 90's on 2L/NC. Found port deaccessed. Bed alarm for safety.
[2020-10-07 06:16] LABS: HEMATOCRIT 39.7 % (37.0-47.0); MCH 29.2 pg (26.0-34.0); MCHC 32.6 g/dL (28.0-37.0); MCV 89.6 fL (80.0-100.0); RBC 4.43 mil/uL (4.20-5.00); RDW 13.5 % (10.5-14.5)
[2020-10-07 06:29] LABS: CREATININE 1.5 mg/dL (0.6-1.0); POTASSIUM 3.6 mmol/L (3.5-5.1)
[2020-10-07 08:26] VITALS: BP 127/76
[2020-10-07 15:51] VITALS: BP 146/85
[2020-10-07 19:54] VITALS: BP 135/86
[2020-10-08 04:09] VITALS: BP 127/81
--- NOTE | 2020-10-08 04:22 | NUR ---
Pt. calm and cooperative then slept well till 0230. Once awake she is very restless and attempting to get out of bed. Also broke IV tubing in two pieces. Lorazepam prn given po to help her calm down. She started to calm down again around 0400. O2 at 2L/NC beginning of shift then RT titrated O2 off around 2300 and has been tolerating room air well. Cont. on enhanced precaution , afebrile. Bed alarm for safety.
[2020-10-08 06:28] LABS: HEMATOCRIT 35.9 % (37.0-47.0); HEMOGLOBIN 11.7 gm/dL (12.0-15.0); MCHC 32.5 g/dL (28.0-37.0); MCV 89.1 fL (80.0-100.0); RBC 4.03 mil/uL (4.20-5.00); RDW 13.6 % (10.5-14.5); WBC 7.2 thou/uL (4.0-11.0)
[2020-10-08 06:35] LABS: CALCIUM 8.5 mg/dL (8.5-10.1); CREATININE 1.1 mg/dL (0.6-1.0)
[2020-10-08 06:38] LABS: POTASSIUM 2.7 mmol/L (3.5-5.1)
[2020-10-08 07:27] VITALS: BP 145/85
[2020-10-08 07:32] VITALS: BP 145/85
[2020-10-08] MEDS ORDERED: XANAX 0.5 MG0.5 M1 PO (19:59)
[2020-10-08] MEDS ORDERED: METFORMIN HCL500 M3 PO (19:59)
[2020-10-08] MEDS ORDERED: KEFLEX500 M1 PO (20:00)
[2020-10-08] MEDS ORDERED: LIPITOR10 MG PO (20:00)
[2020-10-08] MEDS ORDERED: FOLIC ACID1 MG PO (20:01)
[2020-10-08] MEDS ORDERED: SULAR PO (20:01)
[2020-10-08] MEDS ORDERED: NIFEDIPINE ER30 M1 PO (20:04)
[2020-10-08] MEDS ORDERED: PROTONIX40 M2 PO (20:04)
[2020-10-08] MEDS ORDERED: REMERON15 M2 PO (20:05)
[2020-10-08] MEDS ORDERED: NEURONTIN100 MG PO (20:05)
[2020-10-08] MEDS ORDERED: ABILIFY 5 MG TAB5 M1 PO (20:06)
[2020-10-08] MEDS ORDERED: LAMOTRIGINE100 M2 PO (20:07)
[2020-10-08 20:10] VITALS: BP 143/101
[2020-10-09 00:22] VITALS: BP 145/89
[2020-10-09 02:06] LABS: GLYCOHEMOGLOBIN (HGB A1C) 7.5 % (4.8-5.6)
[2020-10-09 04:46] VITALS: BP 137/80
--- NOTE | 2020-10-09 06:19 | NUR ---
Pt. very restless and impulsive at beginning of shift and keeps trying to climb out of bed. Repositioned frequently on bed to keep her comfortable. Scheduled HS meds given and she eventually calm down with just occasional impulsiveness then she started sleeping.Slept most of the night since once she got a comfortable position on bed (lying on her stomach and on her side at times). BP at HS a little on the high side due to activities but once she settled down BP got better. Tolerating room air well with no respiratory distress. Will cont. to monitor.
[2020-10-09 07:33] VITALS: BP 145/80
[2020-10-09 15:05] LABS: HEMOGLOBIN 12.8 gm/dL (12.0-15.0); MCH 28.6 pg (26.0-34.0); MCHC 31.9 g/dL (28.0-37.0); MCV 89.5 fL (80.0-100.0); RBC 4.47 mil/uL (4.20-5.00); RDW 14.3 % (10.5-14.5); WBC 7.4 thou/uL (4.0-11.0)
[2020-10-09 15:13] LABS: URINE BILIRUBIN NEGATIVE (Negative); URINE BLOOD 2+ (Negative); URINE CLARITY CLEAR; URINE COLOR YELLOW; URINE GLUCOSE-RANDOM* 2+ (Negative); URINE KETONES NEGATIVE (Negative); URINE NITRITE-REFLEX NEGATIVE (Negative); URINE PROTEIN (DIPSTICK) TRACE (Negative); URINE SPECIFIC GRAVITY 1.015 (1.005-1.035); URINE UROBILINOGEN 0.2 E.U./dl (0.2-1.0)
[2020-10-09 15:17] LABS: CALCIUM 9.1 mg/dL (8.5-10.1); CREATININE 0.9 mg/dL (0.6-1.0); MAGNESIUM 2.2 mg/dL (1.8-2.4)
[2020-10-09 15:24] LABS: URINE LEUKOCYTES-REFLEX 1+ (Negative)
[2020-10-09 15:26] LABS: SQUAMOUS 0-3 Few /LPF (0-3)
[2020-10-09 15:27] LABS: BACTERIA-REFLEX 1-9 Few /HPF (None Seen); CASTS None Seen /LPF (None Seen); CRYSTALS None Seen /LPF (None Seen); URINE RBC 3-10 Few /HPF (0-2); URINE WBC-REFLEX 6-15 Few /HPF (0-5)
--- NOTE | 2020-10-09 18:35 | NUR ---
CARE ASSUMED AT 0700, ALERT TO SELF, UNABLE TO FOLLOW SIMPLE COMMANDS. PT DROWSY, REFUSE HER MEALS. PT IS ON PPN. ILEAL CONDUIT IN PLACE AND PATENT.FALL PRECAUTIONS IN PLACE. WILL CONTINUE TO MONITOR.
[2020-10-09 19:48] VITALS: BP 155/84
[2020-10-10 03:40] VITALS: BP 84/52
[2020-10-10 06:10] LABS: HEMATOCRIT 37.6 % (37.0-47.0); HEMOGLOBIN 12.2 gm/dL (12.0-15.0); MCHC 32.6 g/dL (28.0-37.0); MCV 88.9 fL (80.0-100.0); RBC 4.23 mil/uL (4.20-5.00); RDW 13.8 % (10.5-14.5); WBC 8.6 thou/uL (4.0-11.0)
[2020-10-10 06:20] LABS: APTT 23.3 Seconds (24.5-32.8); INR 1.3; PROTIME 12.9 Seconds (9.3-11.4)
[2020-10-10 06:49] LABS: CREATININE 1.1 mg/dL (0.6-1.0); MAGNESIUM 2.4 mg/dL (1.8-2.4); POTASSIUM 3.1 mmol/L (3.5-5.1)
[2020-10-10 07:56] VITALS: BP 113/71
--- NOTE | 2020-10-10 10:21 | NUR ---
Nutrition: Notified of possible PPN change to Tube feeds. Pt currently on PPN due to very poor intake, confusion, etc. Noted refusal of multiple meals lately. Physician to address feeding tube option with family. Would rec Glucerna 1.2 to run at 60 mL/hr or if feeding pump unavailable, 5 cans Jevity 1.5 daily to meet ~100% of needs.
--- NOTE | 2020-10-10 11:51 | NUR ---
OSOTMY CARE; POUCH EDGES LOOSE, PT SLEPT THRU CHANGING APPLIANCE,NEW POUCH HILARY ONE PIECE CONVEX 1' APPLIED, PERISTOMAL SKIN INTACT, CONNECTED TO DEP DRAINAGE, SUPPLIES AT BS RECOMMENDATIONS; CHANGE APPLIANCE Q3-5 DAYS AND PRN, KEEP CONNECTED TO DEP DRAINAGE MACHINE INSTALLER AWARE
--- NOTE | 2020-10-10 12:07 | HC ---
[facility] [place] [address] CONSULTATION Name: RENATA SILVEIRA Room #: 355-P ADM IN M.R.#: [id number] Admission: 09/20/20 Attend Phys: Heber Sterling DO Discharge: Date of : 47 Report #: [id number] THIS REPORT FOR: cc: JI Liao family physician/PCP JI Liao family physician/PCP Susan Hart MD ~ DATE OF SERVICE: 10/09/2020 ENDOCRINE CONSULTATION NOTE CONSULTING PHYSICIAN: Dr. Amezcua. REASON FOR CONSULTATION: Type 2 diabetes mellitus. HISTORY OF PRESENT ILLNESS: This is a 75-year-old female patient who has had a lengthy hospital stay in the setting of behavioral changes, paranoia, bipolar disorder, encephalopathic changes as well as COVID-19 positive pneumonitis. Other background issues that continued to need close medical attention included hypertension as well as renal insufficiency and essential tremors. The patient was minimally interactive throughout my interview with her and has answered some questions, but overall was not very informative. Overall, it does not appear that the patient has had a prior diagnosis of type 2 diabetes mellitus. However, as she has been treated for COVID-19 including with glucocorticoids, the patient was noted to develop diabetic range hyperglycemia. Also, the patient is known to have hypertension. REVIEW OF SYSTEMS: CONSTITUTIONAL: The patient describes nonspecific fatigue, tiredness, but no fever or chills. HEENT: Negative for sore throat, sinus pain or ear drainage. PULMONARY: Shortness of breath and cough, but no hemoptysis. CARDIAC: Negative for chest pain, palpitations, syncope or presyncope. GASTROINTESTINAL: Occasional abdominal discomfort, occasional nausea, but not vomiting or diarrhea. NEUROLOGY: Tremors, but not seizure activity, loss of consciousness or severe frequent headaches. Otherwise, review of systems noncontributory other than those mentioned in HPI. ACTIVE MEDICAL ISSUES: 1. Type 2 diabetes mellitus. 2. Hypertension. 3. Hyperlipidemia. 4. COVID-19 pneumonitis. [facility] [address] [place] [address] CONSULTATION Name: RENATA SILVEIRA Andrez Room #: 355-P [facility] IN M.R.#: [id number] Admission: 09/20/20 Attend Phys: Heber Sterling DO Discharge: Date of : 47 Report #: [id number] 5. Acute respiratory failure. 6. Renal insufficiency, resolving. 7. Hypernatremia, resolving. 8. Hypokalemia, resolving. 9. Acute encephalopathy. 10. Recurrent UTIs. 11. Bipolar disorder. CURRENT MEDICATIONS: Include: 1. Albuterol. 2. Lorazepam 0.5 mg with meals and bedtime. 3. Haloperidol 2 mg with meals and at bedtime. 4. Prednisone 20 mg daily. 5. Lamotrigine 150 mg at bedtime. 6. Gabapentin 100 mg b.i.d. 7. Pantoprazole 40 mg daily. 8. Melatonin 10 mg daily. 9. Ascorbic acid 500 mg daily. 10. Loperamide 2 mg q. 6 hours p.r.n. 11. Zinc sulfate 220 mg daily. ALLERGIES: IODINE, MORPHINE, AND CODEINE. FAMILY HISTORY: Noncontributory. SOCIAL HISTORY: No documentation of tobacco or alcohol use. PHYSICAL EXAMINATION: GENERAL: Elderly female patient who is not in apparent pain or distress. VITAL SIGNS: Blood pressure is 128/88 mmHg, heart rate is 80 per minute, respiration 20 per minute, temperature 36.7 degrees Celsius. CONSTITUTIONAL: She is lying supine in bed, does not appear to be in pain or distress. HEENT: Anicteric sclerae. Intact extraocular motions. NECK: Supple, without JVD or thyromegaly. CHEST: Noted for moderate air entry bilaterally with coarse breath sounds, but no wheezes or crackles. HEART: Regular rate and rhythm without murmurs or gallops. ABDOMEN: Soft, lax. No guarding. Active bowel sounds. EXTREMITIES: Lower extremity exam is negative for ankle edema. NEUROLOGIC: Awake, alert, minimally interactive, moves all extremities spontaneously, not cooperative with the exam. PSYCHIATRIC: Minimally interactive, avoids [place] [address] CONSULTATION Name: RENATA SILVEIRA Andrez Room #: 355-P ADM IN M.R.#: [id number] Admission: 09/20/20 Attend Phys: Heber Sterling DO Discharge: Date of : 47 Report #: [id number] LABORATORY RESULTS: Blood glucose values are noted over the patient's hospital stay and has gotten as high as 486 mg/dL and run from 199 to 204, 215 and 245 mg/dL. Sodium 141, potassium 3.5, chloride 106, CO2 of 26, anion gap 9, BUN 12, creatinine 1.1, glucose 241. AST 14, total bilirubin 0.6, direct bilirubin 0.1, calcium 8.5, magnesium 2.5, alkaline phosphatase 53, ALT 21, total protein 7.4, albumin 3.0. EGFR 49. Total LDH 292. BNP 1387, CRP 148.6. INR 1.2. White blood count 7.2, hemoglobin 11.7, hematocrit 35.9, platelets 148. Hemoglobin A1c 7.5%. ASSESSMENT AND PLAN: 1. Type 2 diabetes mellitus. This is seemingly a new diagnosis for the patient; however, it is adequately documented as per her various blood glucose values over 200 mg/dL and her hemoglobin A1c of 7.5%. She was counseled about this diagnosis and about the need to achieve and maintain adequate glycemic control long-term to avoid diabetic complications. I believe that the patient's blood glucose values have acutely worsened due to the necessary glucocorticoid therapy, which is being tapered off now. It appears that the patient has stabilized from the COVID-19 pneumonitis standpoint and if it is permissible, I would plan to quickly taper the patient off all glucocorticoid to alleviate this burden to her glycemic control. In the immediate setting, I will utilize Tradjenta 5 mg daily, low dose metformin therapy in the form of metformin XR 500 mg daily, along with low intensity Humalog supplemental scale to be activated if her blood glucose is over 200 mg/dL. Blood glucose monitoring will continue a.c. and at bedtime and further therapeutic adjustments will be made accordingly. 2. Hypertension. The patient has required multiple therapeutic changes due to this issue, but seems to be under adequate control. 3. COVID-19 pneumonitis. The patient has done fairly well from this standpoint and has been followed closely by Dr. Lira and has been through antiviral therapy, antibiotic therapy as well as steroid therapy, which is being tapered off now. She appears to be stable and seems to have resolved her issues with acute respiratory failure. I have reviewed the patient's clinical care reports, laboratory data, and other related clinical information at length. I have reviewed all of her progress notes since admission, especially as she has been minimally informative. This review went on for more than 35 minutes, in addition to my interaction time with the patient. <ELECTRONICALLY SIGNED> By: Susan Hart MD 10/10/20 1207 1057 1227 Susan Hart MD /nt
[2020-10-10 14:02] LABS: BUN 25 mg/dL (7-18); CALCIUM 8.1 mg/dL (8.5-10.1); CHLORIDE 104 mmol/L (98-107); CO2 17 mmol/L (21-32); CREATININE 0.8 mg/dL (0.6-1.0); GLUCOSE 347 mg/dL (74-106)
[2020-10-10 14:11] LABS: TROPONIN-I <0.06 ng/mL (<0.06)
[2020-10-10 14:12] LABS: ANION GAP 12 mmol/L (7-16)
--- NOTE | 2020-10-10 14:12 | EKG ---
[address] [address] ELECTROCARDIOGRAM REPORT Name: RENATA SILVEIRA Room #: 355- ADM IN M.R.#: [id number] Admission: 09/20/20 Attend Phys: Heber Sterling DO Discharge: Date of : 47 Report #: [id number] [facility] Test Date: 2020-10-10 Test Time: 13:58:41 Pat Name: RENATA SILVEIRA Department: Room: [facility] Gender: F Ground Hand: Alban ECHOLS : 1945 Requested By: Edgardo Amezcua Order Number: [id number] MD: Sudheer Downs Measurements Intervals Gilbert Rate: 100 P: 57 NV: 163 QRS: -53 QRSD: 87 T: -27 QT: 423 QTc: 546 Interpretive Statements Sinus tachycardia Compared to ECG 09/20/2020 11:05:35 RSR' in V1 or V2 now present Sinus rhythm no longer present ST (T wave) deviation no longer present Electronically Signed On 10-10-2020 14:12:21 ELIGIBILITY ANALYST by Sudheer Downs [email or web address] <ELECTRONICALLY SIGNED> By: Sudheer Downs MD, FAC 10/10/20 1412 1358 1358 Sudheer Downs MD, [facility] /EPI
[2020-10-10 14:13] LABS: POTASSIUM 4.1 mmol/L (3.5-5.1); SODIUM 133 mmol/L (136-145)
[2020-10-10 16:02] VITALS: BP 144/87
--- NOTE | 2020-10-10 17:50 | NUR ---
CARE ASSUMED AT 0700, PT ALERT TO SELF, RESTLESS AND IMPULSIVE. DENIES ANY PAIN. PT IS ON ROOM AIR, NO SIGNS OF DISTRESS. EDUCATION REINFORCED ABOPUT PT STAYING BED, FALL PRECAUTIONS IN PLACE. DAUGHTER SANTANA CALLED AND UPDATED ABOPUT PT STATUS, CALLED DAUGHTER IN ROOM SO SHE CAN SPEAK TO PT. WILL CONTINUE TO MONITOR.
[2020-10-10 19:30] VITALS: BP 138/80
[2020-10-10 23:48] VITALS: BP 151/105
--- NOTE | 2020-10-11 00:02 | NUR ---
ASSUMED CARE OF PT AT 1900HRS. PT IS ALERT BUT DISORIENTED X4. FALL PRECAUTION IN PLACE AND PT CAN BE IMPULSIVE. PPN INFUSING. ASSESSMENT CHARTED. UROSTOMY IN PLACE. PT WAS TRANSFERRED TO ROOM 452 IN STABLE CONDITION AT 2315HRS. DPOA/DTR NOTIFIED REGARDING TRANSFER. REPORT GIVEN TO ONCOMING RN.
--- NOTE | 2020-10-11 01:27 | NUR ---
PT ADMITTED TO THE UNIT AT APPROXIMATELY 2230.PT IS A/O X1 AND HAS BEEN NONVERBAL. ROOM AIR. BP ELEVATED BUT UNABLE TO GET AN ACCURATE READING DUE TO PT TREMORS. WILL CHECK AGAIN. OTHERWISE,VSS. UROSTOMY IS IN PLACE AND DRAINING LIGHT YELLOW URINE. IV MEDICATIONS RESUMED DIRECTED. FREQUENT ROUNDING COMPLETED, AND PT IS IN ROOM NEAR NURSES STATION. FALL PRECAUTIONS IN PLACE, CALL LIGHT IS WITHIN REACH. WILL CONTINUE TO MONITOR.
[2020-10-11 05:34] LABS: HEMATOCRIT 38.8 % (37.0-47.0); HEMOGLOBIN 12.3 gm/dL (12.0-15.0); MCH 28.7 pg (26.0-34.0); MCHC 31.8 g/dL (28.0-37.0); MCV 90.3 fL (80.0-100.0); RBC 4.29 mil/uL (4.20-5.00); RDW 14.1 % (10.5-14.5); WBC 13.2 thou/uL (4.0-11.0)
[2020-10-11 05:54] LABS: CALCIUM 9.4 mg/dL (8.5-10.1); MAGNESIUM 2.2 mg/dL (1.8-2.4); POTASSIUM 3.9 mmol/L (3.5-5.1)
[2020-10-11 07:33] VITALS: BP 158/79
--- NOTE | 2020-10-11 13:24 | EEG ---
[facility] [place] [address] [place] [address] ELECTROENCEPHALOGRAM Name: RENATA SILVEIRA Room #: 452-P [facility] IN M.R.#: [id number] Admission: 09/20/20 Attend Phys: Thad Edward Discharge: Date of : 47 Report #: [id number] THIS REPORT FOR: //name// HISTORY: The patient is a 75-year-old female, COVID positive with significant confusion. An EEG is requested to rule out subclinical seizure disorder. DESCRIPTION: The record was partially obscured by movement artifact; however, no clear posterior dominant rhythm is noted secondary to low amplitude 20-25 cycles per second activity, which is seen throughout the recording. During the recording, intermittent 5-6 cycles per second activity is seen over the posterior head region. Very intermittent 5-6 cycles per second activity is seen over the frontal head regions as well. Eye blink artifact is noted. Movement artifact is noted. No focal abnormalities or epileptiform discharges are noted. No sleep is recorded. IMPRESSION: This is an abnormal adult awake record because of diffuse bilaterally symmetrical slowing, which may be seeing diffuse cerebral dysfunction. There are no clear focal abnormalities or epileptiform discharges. There is no evidence of subclinical status. <ELECTRONICALLY SIGNED> By: Roxi Post DO 10/11/20 1324 1525 1555 Roxi Post DO /nt
[2020-10-11 15:40] VITALS: BP 116/71
--- NOTE | 2020-10-11 16:45 | NUR ---
Received awake on bed, but non verbal. Pt's pupils unequal, and not tracking- pt's daughter aware- Dr Amezcua informed and aware as well. Due medications given as prescribed. Vital signs stable. On room air. On MS, not on telemetry; no complains and signs of chest pain, crushing sensation and heaviness. With urostomy in place- draining well; output measured and recorded accordingly. On blood sugar monitoring, taken and recorded accordingly. Falls bundle in place. Assisted in ADLs. Pt encouraged and assisted in eating and drinking; pt refuses despite trying several times. With L upper arm midline; dressing C/D/I; PPN at 75cc/hr, infusing well. Pt scheduled for lumbar puncture on Tuesday- pt's daughter informed and aware; to hold Enoxaparin tomorrow AM. Pt's daughter visited this AM, update given; still wanted to talk to physician- Dr Amezcua informed and talked to pt's daughter, informed him again re: pt's eye sight. To continue monitoring patient. Turned on her sides regularly; Falls bundle in place, may be impulsive at times.
[2020-10-11 19:26] VITALS: BP 126/63
[2020-10-12 04:56] LABS: HEMATOCRIT 37.7 % (37.0-47.0); HEMOGLOBIN 12.1 gm/dL (12.0-15.0); MCH 29.2 pg (26.0-34.0); MCHC 32.1 g/dL (28.0-37.0); MCV 90.8 fL (80.0-100.0); RBC 4.15 mil/uL (4.20-5.00); RDW 14.5 % (10.5-14.5); WBC 8.7 thou/uL (4.0-11.0)
[2020-10-12 05:05] LABS: CALCIUM 9.2 mg/dL (8.5-10.1); CREATININE 0.9 mg/dL (0.6-1.0); POTASSIUM 3.6 mmol/L (3.5-5.1)
--- NOTE | 2020-10-12 05:57 | NUR ---
Assumed pt care at 1900. Alert to self only,eyes not tracking will nod her head sometimes to yes/no questions. Pt keeps trying to get out of the bed/sleeps with legs over rail. Urostomy patent with yellow urine noted. Max assist with all cares. Midline patent on LUE with PPN infusing. Fall precautions in place,will continue to monitor pt.
[2020-10-12 07:38] VITALS: BP 113/78
[2020-10-12 15:15] VITALS: BP 126/78
[2020-10-12 19:40] VITALS: BP 120/78
--- NOTE | 2020-10-12 20:07 | NUR ---
PT DISORIENTED X4, VSS, NO APPARENT PAIN. PATIENT LETHARGIC MOST OF DAY. MEDICATON HELD. PATIENT WOULD COUGH AND LET FOOD RUN TO SIDE OF MOUTH, DOCTOR AWARE. MEDICATIONS CHANGED IN EMAR. NO SIGNS OF DISTRESS. PATIENT ROUNDED ON OFTEN. WILL CONTINUE TO MONITOR.
--- NOTE | 2020-10-13 03:53 | NUR ---
ASSUMED CARE OF PT AT 1900HRS. PT ALERT BUT NON VERBAL THIS SHIFT. FALL PRECAUTION IN PLACE. PPN CONTINUED. PT HAS TREMORS. PT TURNED FREQUENTLY. ANTONIO IN PLACE AND PATIENT. PT WAS SEEN POCKETING FOOD IN MOUTH. SPEECH CONSULTED. PT HAS A FLAT AFFECT. LUMBER PUNCTURE SCHEDULED IN THE AM. NO S/S OF ACUTE DISTRESS. WILL CONTINUE TO MONITOR.
[2020-10-13 05:22] LABS: HEMOGLOBIN 11.9 gm/dL (12.0-15.0); MCHC 31.4 g/dL (28.0-37.0); MCV 92.4 fL (80.0-100.0); RBC 4.11 mil/uL (4.20-5.00); WBC 8.4 thou/uL (4.0-11.0)
[2020-10-13 05:37] LABS: CALCIUM 8.9 mg/dL (8.5-10.1); CREATININE 1.1 mg/dL (0.6-1.0); MAGNESIUM 2.1 mg/dL (1.8-2.4); POTASSIUM 4.3 mmol/L (3.5-5.1)
[2020-10-13 07:53] VITALS: BP 134/79
--- NOTE | 2020-10-13 08:15 | NUR ---
OSTOMY CARE; POUCH CHANGED USING HILARY CONVEX 1' APPLIANCE, STOMA RED VIABLE FLAT W/ SKIN SURFACE, PERISTOMAL SKIN INTACT, CLEAR YELLOW URINE NOTED, PT COOPERATIVE, CONNECTED TO DEP DRAIANGE, SUPPLIES AT BS RECOMMENDATIONS; CHANGE POUCH Q3-5 DAYS AND PRN, CONNECT TO DEP DRAINAGE, EMPTY PRN SALESPERSON BURIAL PLOTS AWARE
--- NOTE | 2020-10-13 11:58 | NUR ---
ASSUMED PT CARE THIS AM. PT AROUSABLE, BUT NONVERBAL. IV PATENT, PPN INFUSING. APPLIANCE FIXER REPORTED THAT PT TOOK MEDS POORLY AND WOULD POCKET/NOT FULLY SWALLOW MEDS. PO MEDS WITHHELD THIS AM AND NOTIFIED OF FINDINGS. UROSTOMY BAG CHANGED THIS AM BY UROSTOMY NURSE. FALL PRECAUTIONS IN PLACE.
[2020-10-13 15:20] VITALS: BP 118/71
[2020-10-13 19:36] VITALS: BP 151/94
[2020-10-13 20:20] LABS: INR 1.2; PROTIME 12.7 Seconds (9.3-11.4)
--- NOTE | 2020-10-14 06:08 | NUR ---
Assumed pt care at 1900. Pt lethargic and sleeping the whole time,will open eyes to name and close them right back. HS meds not given d/t condition. PPN infusing via LUE midline. Pt has a port on right chest patent. Pt has a urostomy, patent with yellow urine w/sediments noted. VSS. Fall precautions in place.Resting w/o distress will continue to monitor pt.
[2020-10-14 08:23] LABS: APTT 24.5 Seconds (24.5-32.8); INR 1.3; PROTIME 12.9 Seconds (9.3-11.4)
[2020-10-14 08:57] VITALS: BP 113/86
[2020-10-14 08:58] LABS: CALCIUM 8.9 mg/dL (8.5-10.1); CREATININE 0.9 mg/dL (0.6-1.0); MAGNESIUM 2.1 mg/dL (1.8-2.4); POTASSIUM 4.5 mmol/L (3.5-5.1)
[2020-10-14 09:07] LABS: HEMATOCRIT 37.3 % (37.0-47.0); MCH 29.1 pg (26.0-34.0); MCHC 32.2 g/dL (28.0-37.0); MCV 90.5 fL (80.0-100.0); RBC 4.12 mil/uL (4.20-5.00); RDW 15.2 % (10.5-14.5); WBC 7.2 thou/uL (4.0-11.0)
--- NOTE | 2020-10-14 09:16 | NUR ---
SW contacted Pt's daughter Rebecca to provided emotional support. SW reassured that the SW team remains avaliable for questions or concerns. Dayday was thankful for the phone call. SW team will continue to follow.
[2020-10-14] MEDS ORDERED: IPRAT-ALBUT 0.5-3 ML INH (10:19)
[2020-10-14] MEDS ORDERED: ENOXAPARIN30 MG/0.1 SUBQ (10:20)
[2020-10-14] MEDS ORDERED: LAMOTRIGINE150 MG PO (10:20)
[2020-10-14] MEDS ORDERED: ABILIFY 2 MG2 M1 PO (10:21)
[2020-10-14] MEDS ORDERED: GABAPENTIN 100100 MG PO (10:21)
[2020-10-14] MEDS ORDERED: REMERON 30 MG T30 M1 PO (10:21)
[2020-10-14] MEDS ORDERED: GLUTOSE GEL 1515 G1 PO (10:22)
[2020-10-14] MEDS ORDERED: LORAZEPAM 0.50.5 MG PO (10:22)
[2020-10-14] MEDS ORDERED: DEXTROSE 50%-WA50 ML IV PUSH (10:22)
[2020-10-14] MEDS ORDERED: HALOPERIDOL5 MG/1 ML IM (10:22)
[2020-10-14] MEDS ORDERED: GLUCOSE4 GM PO (10:22)
[2020-10-14] MEDS ORDERED: METFORMIN HCL500 M1 PO (10:23)
[2020-10-14] MEDS ORDERED: PROTONIX 20 MG20 M1 PO (10:23)
[2020-10-14] MEDS ORDERED: MILK OF MA2400 MG/11 PO (10:23)
[2020-10-14] MEDS ORDERED: LOPERAMIDE 2 MG2 M1 PO (10:23)
[2020-10-14] MEDS ORDERED: HUMALOG100 UNIT/1 SUBQ (10:24)
[2020-10-14] MEDS ORDERED: TRADJENTA5 MG PO (10:24)
[2020-10-14] MEDS ORDERED: MELATONIN5 M1 PO (10:24)
[2020-10-14] MEDS ORDERED: GLUCAGEN1 MG/1 ML IM (10:24)
--- NOTE | 2020-10-14 13:16 | NUR ---
ASSUMED PT CARE THIS AM. PT AROUSABLE, BUT DOES NOT TRACK. UROSTOMY WORKING WELL. IV PATENT. NO PAIN NOTED. FALL PRECAUTIONS IN PLACE. LUMBAR PUNCTURE COMPLETED TODAY.
[2020-10-14 13:25] LABS: CSF GLUCOSE 122 mg/dL (40-70); CSF PROTEIN 41 mg/dL (15-45)
--- NOTE | 2020-10-14 13:52 | NUR ---
PT INITIALLY ADMITTED TO [facility] 09/20 RELATED TO 09/20/20 1) COVID +, PSYCHOSIS NOS, UTI. PT WAS ON SICU THEN MOVED TO . CM REVIEWED CHART AND SPOKE WITH CARE TEAM. CM SPOKE WITH PT'S DTR SANTANA THIS DAY. SHE INDICATED THAT GEAR GENERATOR SET UP OPERATOR PT HAD BEEN LIVING IN A HOUSE WITH 8 STEPS TO ENTER AND 18 STEPS INSIDE. DTR INDICATED THAT SHE RESIDES WITH MOTHER. DTR INDICATED THAT PT HAD BEEN INDEPDENENT WITH GAIT AND ADLS GEAR GENERATOR SET UP OPERATOR. SHE INICATED NO DME. DTR INDICATED PT [facility] IN PAST BUT COULDN'T RECALL PROVIDER. SHE INDICATED SHE HAD GONE FOR POST ACUTE CARE STAY BUT COULDN'T REMENBER NAME OF FACILITY. PT SEES [facility] AND DR. SHEPHERD AN OP FOR PSYC. DTR INDICATED SHE WAS RECEPTIVE TO SKILLED IF INDICATED UPON DC. CM TO FOLLOW INDICATED WITH DC PLANNING. PT HAVING LP THIS DAY.
[2020-10-14 14:05] LABS: SOURCE CSF
[2020-10-14 14:06] LABS: BF NUCLEATED CELLS 1 /mm3; BF RBC 21 /mm3; CLARITY CLEAR; COLOR COLORLESS; TOTAL VOLUME 17.5 mL
[2020-10-14 15:46] VITALS: BP 143/90
== END 2020-10-14 17:24 | DRG 177 ==
LOC: 3W 18:35 → SICU 18:35 → 4W 18:35 → 3W 10-03 18:33 → 4W 10-10 23:48
PROVIDERS: Hospitalist; Psychiatry & Neurology Neuromuscular Medicine; Psychiatry & Neurology Psychiatry; Specialist; ADMIT Internal Medicine; ATTEND Internal Medicine
PROC: XW033E5 Introduction of Remdesivir Anti-infective into Peripheral Vein, Percutaneous Approach, New Technology Group 5 (ICD-10-PCS; principal; 2020-09-27)
PROC: 05HC33Z Insertion of Infusion Device into Left Basilic Vein, Percutaneous Approach (ICD-10-PCS; 2020-10-01)
PROC: 009U3ZX Drainage of Spinal Canal, Percutaneous Approach, Diagnostic (ICD-10-PCS; 2020-10-14)
PROC: B01B1ZZ Fluoroscopy of Spinal Cord using Low Osmolar Contrast (ICD-10-PCS; 2020-10-14)
DX: U07.1 COVID-19 (principal); J96.01 Acute respiratory failure with hypoxia; J12.82 Pneumonia due to coronavirus disease 2019; G92 Toxic encephalopathy; N39.0 Urinary tract infection, site not specified; N17.9 Acute kidney failure, unspecified; E87.0 Hyperosmolality and hypernatremia; F31.9 Bipolar disorder, unspecified; F29 Unspecified psychosis not due to a substance or known physiological condition; R60.1 Generalized edema; I10 Essential (primary) hypertension; G25.0 Essential tremor; E87.6 Hypokalemia; E11.9 Type 2 diabetes mellitus without complications; E78.5 Hyperlipidemia, unspecified; F41.9 Anxiety disorder, unspecified; Z88.6 Allergy status to analgesic agent; Z91.041 Radiographic dye allergy status; Z85.51 Personal history of malignant neoplasm of bladder; Z92.21 Personal history of antineoplastic chemotherapy; Z92.3 Personal history of irradiation; Z90.49 Acquired absence of other specified parts of digestive tract; Z79.899 Other long term (current) drug therapy
CPT/HCPCS: 10047; 10779; 15002

== ENCOUNTER 2020-10-14 17:33 | Inpatient (IN) | payer OTHER ==
[~2020-10-14] VITALS: Ht 172.7 cm; Wt 71.7 kg
[~2020-10-14 17:33] MED LIST changes: +ABILIFY 2 MG2 M1 PO; +ABILIFY 5 MG TAB5 M1 PO; +DEXTROSE 50%-WA50 ML IV PUSH; +ENOXAPARIN30 MG/0.1 SUBQ; +FOLIC ACID1 MG PO; +GABAPENTIN 100100 MG PO; +GLUCAGEN1 MG/1 ML IM; +GLUCOSE4 GM PO; +GLUTOSE GEL 1515 G1 PO; +HALOPERIDOL5 MG/1 ML IM; +HUMALOG100 UNIT/1 SUBQ; +IPRAT-ALBUT 0.5-3 ML INH; +KEFLEX500 M1 PO; +LAMOTRIGINE100 M2 PO; +LAMOTRIGINE150 MG PO; +LIPITOR10 MG PO; +LOPERAMIDE 2 MG2 M1 PO; +LORAZEPAM 0.50.5 MG PO; +MELATONIN5 M1 PO; +METFORMIN HCL500 M1 PO; +METFORMIN HCL500 M3 PO; +MILK OF MA2400 MG/11 PO; +NEURONTIN100 MG PO; +NIFEDIPINE ER30 M1 PO; +PROTONIX 20 MG20 M1 PO; +PROTONIX40 M2 PO; +REMERON 30 MG T30 M1 PO; +REMERON15 M2 PO; +SULAR PO; +TRADJENTA5 MG PO; +XANAX 0.5 MG0.5 M1 PO
--- NOTE | 2020-10-14 18:24 | NUR ---
PT NEWLY ADMITTED TO FLOOR BUT NEVER LEFT UNIT. PREVIOUS CHARTING ACCURATE FOR TODAY.
[2020-10-14 18:59] VITALS: BP 143/90
[2020-10-14 19:17] LABS: ALBUMIN 2.9 g/dL (3.4-5.0); TOTAL PROTEIN 6.2 g/dL (6.4-8.2)
[2020-10-14 19:32] VITALS: BP 122/71
--- NOTE | 2020-10-15 06:19 | NUR ---
Pt. rested quietly at intervals during the night when checked on during frequent rounds. She has been non-verbal, but will follow with her eyes. Bed alarm is on.
[2020-10-15 07:17] VITALS: BP 115/70
[2020-10-15 08:37] LABS: HEMATOCRIT 38.7 % (37.0-47.0); HEMOGLOBIN 12.3 gm/dL (12.0-15.0); MCHC 31.9 g/dL (28.0-37.0); RBC 4.25 mil/uL (4.20-5.00); RDW 15.2 % (10.5-14.5); WBC 5.8 thou/uL (4.0-11.0)
[2020-10-15 08:50] LABS: CALCIUM 8.8 mg/dL (8.5-10.1); CREATININE 0.9 mg/dL (0.6-1.0); MAGNESIUM 2.4 mg/dL (1.8-2.4); POTASSIUM 4.3 mmol/L (3.5-5.1)
--- NOTE | 2020-10-15 09:04 | NUR ---
PT INITIALLY ADMITTED TO [facility] 09/20 RELATED TO 09/20/20 1) COVID +, PSYCHOSIS NOS, UTI. PT WAS ON SICU THEN MOVED TO . CM REVIEWED CHART AND SPOKE WITH CARE TEAM. CM SPOKE WITH PT'S DTR SANTANA THIS DAY. 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 DTR INDICATED THAT SHE RESIDES WITH MOTHER. 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 SHE INICATED NO DME. DTR INDICATED PT [facility] IN PAST BUT COULDN'T RECALL PROVIDER. SHE INDICATED SHE HAD GONE FOR POST ACUTE CARE STAY BUT COULDN'T REMENBER NAME OF FACILITY. PT SEES [facility] AND DR. SHEPHERD AN OP FOR PSYC. DTR INDICATED SHE WAS RECEPTIVE TO SKILLED IF INDICATED UPON DC. CM TO FOLLOW INDICATED WITH DC PLANNING. PT HAD LP YESTERDAY.
[2020-10-15 16:11] VITALS: BP 134/81
--- NOTE | 2020-10-15 16:56 | NUR ---
Assumed pt care at 7am.Pt in bed sleeping at alltimes today.Assessment completed.vss.Dr Huggins here,order noted.Received call from lab about today's am run.Attempted to draw fro por-a-cath but no luck.Iv team notified and cath flow activase applied.Port-a -cath is now working.Tpn in progress but pt remains npo.Repositioned q2h for comfort.Will continue to monitor.
[2020-10-15 20:01] VITALS: BP 126/64
--- NOTE | 2020-10-16 03:36 | NUR ---
10-15-13 CARE TRANSFERRED 1914. PT AWAKE WITH EYES OPEN, BUT IS NONVERBALE, VSS, RR EVEN AND NONLABORED ON RA, PT HAS TPN RUNNING AT 40ML/HR AND, R PORT ACCESS PATENT, DRESSING CLEAN AND DRY. PT HAD NO DIFFICULTIES TAKING PO MEDICATION CRUSHED IN APPLESAUSE. PT HAS BEEN REPOSITION PER HCP ORDERS FOR COMFORT. TPN STARTED AFTER COMPLETION OF AM TPN AND TUBING REPLACED AND PER HCP ORDERS RUNNING AT 50ML/HR. ZERO S/S OF ACUTE DISTRESS, PT WILL CONTINUE TO BE MONITOR.
[2020-10-16 07:34] LABS: HEMATOCRIT 38.4 % (37.0-47.0); HEMOGLOBIN 12.5 gm/dL (12.0-15.0); MCH 29.6 pg (26.0-34.0); MCHC 32.5 g/dL (28.0-37.0); RBC 4.22 mil/uL (4.20-5.00); RDW 15.5 % (10.5-14.5); WBC 6.2 thou/uL (4.0-11.0)
[2020-10-16 07:42] LABS: CALCIUM 9.2 mg/dL (8.5-10.1); CREATININE 1.1 mg/dL (0.6-1.0); MAGNESIUM 2.3 mg/dL (1.8-2.4); PHOSPHORUS 2.3 mg/dL (2.6-4.7)
[2020-10-16 08:00] VITALS: BP 122/76
[2020-10-16 14:00] VITALS: BP 122/76
[2020-10-16 16:00] VITALS: BP 125/86
--- NOTE | 2020-10-16 18:19 | NUR ---
Assumed Pt care at 0700am. Pt was resting in her room. Assessment are documented, VSS. Pt is receiving TPN. Pt is nonverbal, Pt opened her eye and responded once during assessment. Pt daughter visited. Pt was drowsy all day. Turned patient Q2H for comfort. DR Guzman and Joseluis visited patient. AUTOMOTIVE PROFESSIONAL completed a bed bath. Oral care was done twice today. Fall bundle in place. Will continue to monitor.
[2020-10-16 19:43] VITALS: BP 123/82
--- NOTE | 2020-10-17 04:13 | NUR ---
ASUMED CARE OF PT AT 1900HRS. PT IS DROWSY AND NONVERBAL. FALL PRECAUTION IN PLACE. PT TURNED Q2-3H. PPN CONTINUED. ASSESSMENT CHARTED. UROSTOMY CONNECTED TO ANTONIO BAG TO DD. URINE CONTAINS SEDIMENTS. SMALL BLEEDING NOTED IN LOWER LIP. ORAL CARE PROVIDED. PT POCKETS FOOD AND IS CURRENTLY NPO. WILL CONTINUE TO MONITOR.
[2020-10-17 05:25] LABS: HEMATOCRIT 40.6 % (37.0-47.0); HEMOGLOBIN 13.1 gm/dL (12.0-15.0); MCH 29.9 pg (26.0-34.0); MCHC 32.4 g/dL (28.0-37.0); MCV 92.4 fL (80.0-100.0); RBC 4.39 mil/uL (4.20-5.00); RDW 16.4 % (10.5-14.5); WBC 9.4 thou/uL (4.0-11.0)
[2020-10-17 05:42] LABS: CALCIUM 9.5 mg/dL (8.5-10.1); CREATININE 1.2 mg/dL (0.6-1.0); MAGNESIUM 2.6 mg/dL (1.8-2.4); POTASSIUM 3.9 mmol/L (3.5-5.1)
[2020-10-17 07:35] VITALS: BP 123/79
--- NOTE | 2020-10-17 09:40 | NUR ---
OSTOMY CARE; UROSTOMY POUCH ON 4 DAYS, CHANGED TODAY USING HILARY CONVEX 1' #8415, STOMA RED VIABLE W/ LIGHT COLOR YELLOW URINE, SOME SEDIMENT PRESENT, PERISTOMAL SKIN INTACT, CONNECTED TO DEP DRAINAGE, PT SLEPT THRU CARE, SUPPLIES AT BS RECOMMENDATIONS; HILARY CONVEX 1' POUCH, CHANGE Q3-5 DAYS AND PRN, CONNECT TO DEP DRAINAGE, TON CONTAINER SHIPPER AWARE
--- NOTE | 2020-10-17 09:55 | NUR ---
ORDERS FOR EVAL AND TREAT. HAVE ATTEMPTED TIMES 3 DAYS HOWEVER Pt UNABLE TO FOLLOW COMMANDS OR PARTICIPATE WITH EVAL. [place] STATE. WILL PLACE ON HOLD AND AWAIT NEW ORDERS TO ATTEMPT AGAIN ONCE Pt IS ABLE TO PARTICIPATE
--- NOTE | 2020-10-17 12:47 | NUR ---
ASSUMED PT CARE THIS AM. PT RESPONDING TO PAIN, BUT NO LONGER OPENING EYES WHEN TALKED TO. PLACED ON 1 L OXYGEN VIA NC, SATING 95%. IV REMAINS PATENT. RECEIVING TPN. TREMORS NOTED. PT BEING REPOSITIONED ACCORDINGLY.
[2020-10-17] MEDS ORDERED: ABILIFY 5 MG TAB5 MG PO (14:36)
[2020-10-17] MEDS ORDERED: METFORMIN HCL500 MG PO (14:38)
[2020-10-17] MEDS ORDERED: FOLIC ACID1 MG PO (14:39)
[2020-10-17] MEDS ORDERED: REMERON15 M2 PO (14:39)
[2020-10-17] MEDS ORDERED: CEPHALEXIN500 MG PO (14:40)
[2020-10-17] MEDS ORDERED: ALPRAZOLAM 0.0.25 M1 PO (14:40)
[2020-10-17] MEDS ORDERED: SULAR PO (14:41)
[2020-10-17 16:23] VITALS: BP 123/83
[2020-10-17 20:37] VITALS: BP 119/77
--- NOTE | 2020-10-18 04:02 | NUR ---
Pt. rested quietly during the night when checked on during frequent rounds. She has been drowsy and non-verbal. Turned and repositioned. Oral mouth care given. Tpn infusing via right chest port without difficulty. Bed alarm is on.
[2020-10-18 07:01] LABS: HEMATOCRIT 40.2 % (37.0-47.0); HEMOGLOBIN 12.9 gm/dL (12.0-15.0); MCH 29.6 pg (26.0-34.0); MCHC 32.1 g/dL (28.0-37.0); MCV 92.2 fL (80.0-100.0); RBC 4.36 mil/uL (4.20-5.00); RDW 16.7 % (10.5-14.5); WBC 8.3 thou/uL (4.0-11.0)
[2020-10-18 07:10] LABS: CALCIUM 9.3 mg/dL (8.5-10.1); CREATININE 1.1 mg/dL (0.6-1.0); MAGNESIUM 2.6 mg/dL (1.8-2.4); PHOSPHORUS 3.5 mg/dL (2.6-4.7); POTASSIUM 3.7 mmol/L (3.5-5.1)
[2020-10-18 08:05] VITALS: BP 118/83
--- NOTE | 2020-10-18 11:23 | NUR ---
Received awake on bed. Pt non verbal, opening eyes at times, responding to painful stimuli. On MS, not on telemetry; no complains and signs of chest pain, crushing sensation and heaviness. On O2 at 1lpm via nasal cannula. On nothing per orem, mouth care done. With urostomy in place- draining well; output measured and recorded accordingly. On blood sugar monitoring ACHS, with sliding scale insulin ordered, given as prescribed. With R chest port, accessed. With L upper arm midline, TPN infusing well at 75cc/hr; dressing to be changed today. Pt turned regularly on her sides. Falls bundle in place. No nausea, no vomiting and no abdominal pain noted. Pt's daughter called this AM that Dr Huggins needs to talk to her; paged Dr Huggins and informed him that pt's daughter and son here at bedside to talk to him. Dr Huggins spoke to both pt's daughter and son re: plan of care and possible hospice for the pt, renal case manager informed during prime time; [facility] called re: pt for evaluation, requiring orders and chart copy to be faxed- Dr Huggins informed re: orders for home with hospice to be done- physician informed and aware. To continue monitoring and keeping patient comfortable; with daughter at bedside.
[2020-10-18 14:54] VITALS: BP 134/89
[2020-10-18 19:31] VITALS: BP 124/84
--- NOTE | 2020-10-19 03:23 | NUR ---
Pt. rested quietly during the night when checked on during frequent rounds. She has been non-verbal. Pt. turned and repositioned. Tpn infusing via port-a-cath without difficulty. Bed alarm is on.
[2020-10-19 05:24] LABS: CALCIUM 9.2 mg/dL (8.5-10.1); CREATININE 1.2 mg/dL (0.6-1.0); MAGNESIUM 2.5 mg/dL (1.8-2.4); PHOSPHORUS 3.8 mg/dL (2.5-4.9); POTASSIUM 3.8 mmol/L (3.5-5.1); TOTAL BILIRUBIN 0.5 mg/dL (0.2-1.0); TOTAL PROTEIN 6.7 g/dL (6.4-8.2)
[2020-10-19 07:49] VITALS: BP 144/86
--- NOTE | 2020-10-19 11:25 | NUR ---
Received asleep on bed. Rousable to painful stimuli; non verbal. On MS, not on telemetry; no complains and signs of chest pain, crushing sensation and heaviness. On O2 at 1lpm via nasal cannula. On nothing per orem; mouth swabs done, lip moisturizer applied. On blood sugar monitoring, taken and recorded accordingly; with sliding scale and scheduled insulin ordered, given as prescribed. With urostomy in place; draining well; output measured and recorded accordingly. With chest port at R- TPN at 75cc/hr, infusing well. Midline removed by IV nurse yesterday, Pt turned regularly on his sides; barrier cream applied on her buttocks. Possible discharge tomorrow, home with hospice- informed; Dr Huggins aware as well. No signs of pain noted during assessment. To continue monitoring and keeping patient comfortable.
[2020-10-19 14:43] VITALS: BP 139/98
[2020-10-19 20:27] VITALS: BP 140/94
--- NOTE | 2020-10-19 21:07 | EEG ---
[facility] [place] [address] ELECTROENCEPHALOGRAM Name: RENATA SILVEIRA Room #: 452-P ADM IN M.R.#: [id number] Admission: 10/14/20 Attend Phys: Edgardo Amezcua MD Discharge: Date of : 47 Report #: [id number] THIS REPORT FOR: //name// DATE OF SERVICE: 10/17/2020 This patient is unresponsive. Background activity is difficult to determine because lot of artifact is present. It is disorganized and poorly formed. It appeared to be about 6-7 Hz and 30 microvolt. Photic stimulation is unremarkable. I did not change much. IMPRESSION: This is an abnormal EEG. This is a nonspecific finding, which can occur with encephalopathy, dementia, effects of psychotropic medication, etc. No epileptiform activity was noticed during this record. <ELECTRONICALLY SIGNED> By: Nahum Orona MD 10/19/20 [id number] Nahum Orona MD /nt
--- NOTE | 2020-10-20 04:15 | NUR ---
ASSUMED PT CARE AT SHIFT CHANGE. PT IS ASLEEP BUT AROUSABLE WHEN STERNUM RUB DONE. PT RESPONDS TO HER NAME BEING CALLED LOUDLY BUT MUMBLES. PT IS ON 1 LITER WITH THE NASAL CANULA. ORAL CARE ATTEMPTED BUT PT KEEPS BITING DOWN. PT IS Q6 ON THE BLOOD SUGAR. MIDNIGHT BLOOD SUGAR WAS 201. I ADMINISTERED 16 UNITS OF INSULIN. 12 ORDERED AND 4 UNITS SLIDING SCALE. PT'S UROSTOMY HAS YELLOW URINE WITH SEDIMENT IN THE TUBING. PT HAS A RIGHT CHEST PORT WITH TPN RUNNING AT 75 ML/HR (I CHANGED THE TUBING AND BAG FOR TPN). Q2 TURNS PERFORMED ON PT. HOURLY ROUNDS PERFORMED. WILL CONTINUE TO MONITOR.
[2020-10-20 05:08] VITALS: BP 116/70
[2020-10-20 07:25] LABS: CALCIUM 9.9 mg/dL (8.5-10.1); CREATININE 1.1 mg/dL (0.6-1.0); POTASSIUM 3.9 mmol/L (3.5-5.1)
--- NOTE | 2020-10-20 08:03 | NUR ---
OSTOMY CARE; RESTING QUIETLY, POUCH CHANGED USING HILARY ONE PIECE CONVEX 1' POUCH, STOMA RED VIABLE, FLAT W/ SKIN SURFACE, LIGHT YELLOW URINE W/ SEDIMENT PRESENT, PERISTOMAL SKIN INTACT, POUCH CONNECTED TO DEP DRAINAGE SYSTEM, SUPPLIES AT BS RECOMMENDATIONS; CHANGE POUCH Q 3-5 DAYS AND PRN, KEEP CONNECTED TO DEP DRAINAGE NETWORK DEVELOPMENT COORDINATOR AWARE
[2020-10-20 08:08] VITALS: BP 133/88
--- NOTE | 2020-10-20 12:09 | NUR ---
ASSUMED PT CARE THIS AM. PT OPENS EYES WHEN TALKED TO, BUT DOES NOT RESPOND VERBALLY. TEMPERATURE NOTED THIS AM, GIVEN TYLENOL AND TEMP DECREASED. PT BEING REPOSITIONED Q2H. ON 1L NC. TPN INFUSING AT 75/HR. FALL PRECAUTIONS IN PLACE.
--- NOTE | 2020-10-20 13:24 | NUR ---
CM FOLLOWD UP WITH PT'S DTR [facility] CARE TEAM HAD INDICATED THAT THEY HAD DISCUSSED PT RETURNING HOME ON HOSPICE SERVICES. DTR CONFIRMED THIS. SHE INDICATED SHE WANTED TO USE [facility] AND THAT SHE HAD CARED FOR HER FATHER AT HOME ON HOSPICE SO SHE WAS FAMILIAR WITH THE SITUATION. CM SPOKE WITH MADIE AT [facility] AND THEY ARE ABLE TO ACCEPT PT ONTO SERVICES THIS DAY. EQUIPTMENT WILL BE DELIVERED AROUND 1530 TO PT'S HOME. CM TO SET UP [facility] AROUND 1700. ORDERS TO BE FAXED TO [facility]. OUTSIDE THE HOSPITAL DNR FORM SIGNED AND AND TO BE SENT WITH PT. NURSE TO MEET PT AT THE HOME TO COMPLETE ADMISSION.
[2020-10-20 14:38] VITALS: BP 133/88
[2020-10-20 16:55] VITALS: BP 144/93
--- NOTE | 2020-10-20 16:59 | NUR ---
FAXED DC ORDERS/SUMMARY TO [facility] RECEIVED CONFIRMATION.
== END 2020-10-20 19:00 | disposition hospice, home (50) | DRG 189 ==
LOC: 4W 17:33
PROVIDERS: ADMIT Internal Medicine; ATTEND Internal Medicine
DX: J96.00 Acute respiratory failure, unspecified whether with hypoxia or hypercapnia (principal); G92 Toxic encephalopathy; N17.9 Acute kidney failure, unspecified; F31.9 Bipolar disorder, unspecified; F41.1 Generalized anxiety disorder; I10 Essential (primary) hypertension; E11.9 Type 2 diabetes mellitus without complications; F06.1 Catatonic disorder due to known physiological condition; E78.5 Hyperlipidemia, unspecified; K21.9 Gastro-esophageal reflux disease without esophagitis; Z66 Do not resuscitate; Z88.5 Allergy status to narcotic agent; Z88.8 Allergy status to other drugs, medicaments and biological substances; Z79.84 Long term (current) use of oral hypoglycemic drugs; Z79.899 Other long term (current) drug therapy; Z90.49 Acquired absence of other specified parts of digestive tract; Z85.51 Personal history of malignant neoplasm of bladder; Z92.21 Personal history of antineoplastic chemotherapy; Z92.3 Personal history of irradiation; Z74.01 Bed confinement status; Z86.16 Personal history of COVID-19
CPT/HCPCS: 10047